=== PATIENT | male | born 1935 | race African-American/Black ===

== ENCOUNTER 2016-04-03 11:15 | Emergency (ER) | payer BC, MEDICARE ==
[~2016-04-03] VITALS: Ht 175.3 cm; Wt 68.0 kg
--- NOTE | 2016-04-03 13:02 | PHYS DOC ---
Past Medical History Past Medical History: No Pertinent History Additional Past Medical Histor: "eye problems" Past Surgical History: Other Additional Past Surgical Histo: PROSTATE SURGERY Alcohol Use: Occasionally Drug Use: None Adult General Chief Complaint Chief Complaint: OTHER COMPLAINTS [facility] HPI Patient is a 81 year old male presents to emergency department complaining of decreased hearing from his right ear for approximately one week. 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 He denies any injury to his ear. Patient denies any history of neuromuscular disease or neuromuscular disorders. Patient denies any drainage from his ear. Review of Systems Review of Systems Constitutional: Denies fever or chills [] Eyes: Denies change in visual acuity, redness, or eye pain [] HENT: Denies nasal congestion or sore throat [] Respiratory: Denies cough or shortness of breath [] Cardiovascular: No additional information not addressed in HPI [] GI: Denies abdominal pain, nausea, vomiting, bloody stools or diarrhea [] : Denies dysuria or hematuria [] Musculoskeletal: Denies back pain or joint pain [] Integument: Denies rash or skin lesions [] Neurologic: Denies headache, focal weakness or sensory changes [] Endocrine: Denies polyuria or polydipsia [] Allergies Allergies Allergies Coded Allergies Type Severity Reaction Last Updated Verified No Known Drug Allergies 09/25/13 No Physical Exam Physical Exam Constitutional: Well developed, well nourished, no acute distress, non-toxic appearance. [] HENT: Normocephalic, atraumatic, bilateral external ears normal, oropharynx moist, no oral exudates, nose normal. Large cerumen impaction in the right ear canal. Eyes: PERRLA, EOMI, conjunctiva normal, no discharge. [] Neck: Normal range of motion, no tenderness, supple, no stridor. [] Cardiovascular:Heart rate regular rhythm, no murmur [] Lungs & Thorax: Bilateral breath sounds clear to auscultation [] Abdomen: Bowel sounds normal, soft, no tenderness, no masses, no pulsatile masses. [] Skin: Warm, dry, no erythema, no rash. [] Back: No tenderness, no CVA tenderness. [] Extremities: No tenderness, no cyanosis, no clubbing, ROM intact, no edema. [] Neurologic: Alert and oriented X 3, normal motor function, normal sensory function, no focal deficits noted. [] Psychologic: Affect normal, judgement normal, mood normal. [] Current Patient Data Vital Signs Vital Signs Date Time Temp Pulse Resp B/P Pulse Ox O2 Delivery O2 Flow Rate FiO2 04/03/16 13:08 76 18 155/68 98 Room Air 04/03/16 11:35 97.8 97.8 EKG EKG [] Radiology/Procedures Radiology/Procedures Procedure note: Patient's right ear canal was filled with peroxide allowed to sit for 10 minutes. His ear canal is then flushed with [id number] hygiene peroxide and water. A large cerumen impaction was removed. Reexamination of patient's ear after cerumen was removed shows an irritated ear canal. Tympanic membrane is fully visualized and is normal in appearance. Course & Med Decision Making Course & Med Decision Making Pertinent Labs and Imaging studies reviewed. (See chart for details) [] Dragon Disclaimer Dragon Disclaimer This electronic medical record was generated, in whole or in part, using a voice recognition dictation system. Departure Departure Impression: Primary Impression: Cerumen impaction Disposition: 01 HOME, SELF-CARE Condition: IMPROVED Referrals: NO PCP (PCP) Patient Instructions: Cerumen Impaction Additional Instructions: 1. The ear wax was removed from your right ear canal. Your eardrum, however, is normal in appearance. 2. Use the drops for you ear canal as prescribed. There was some irritation the ear canal with removal of the ear wax. 3. Review the discharge instructions provided for self care and reasons to return to the emergency department. 4. Use the pamphlet provided for assistance in finding a primary care doctor to address your medical concerns. ALYSA MCKEON Apr 03, 2016 13:02
[2016-04-03 13:08] VITALS: BP 155/68
== END 2016-04-03 13:11 | disposition home or self-care (01) ==
LOC: ER 11:15
DX: H61.21 Impacted cerumen, right ear (principal)
CPT/HCPCS: 69209; 99282

== ENCOUNTER 2018-11-24 10:15 | Inpatient (IN) | payer BC, MEDICARE ==
[~2018-11-24] VITALS: Ht 175.3 cm; Wt 54.4 kg
[2018-11-24] MEDS ORDERED: IV NORMAL SALINE 1000ML BAG 1,000 ML IV SCH (10:38)
--- NOTE | 2018-11-24 10:47 | PHYS DOC ---
Past Medical History Past Medical History: Cancer (prostate) Additional Past Medical Histor: "eye problems" Past Surgical History: Other Additional Past Surgical Histo: PROSTATE SURGERY Smoking: Cigarettes (The patient is a nonsmoker.) Alcohol Use: Occasionally Drug Use: None Adult General Chief Complaint Chief Complaint: ALTERED MENTAL STATUS HPI HPI Patient is an 83-year-old male who presents to the emergency department for evaluation. His family states that he is becoming increasingly confused, and weak, over the past month. Until about a month or 2 ago, he had been working and driving. He denies any pain. He has had a poor appetite, and lost significant amounts of weight. He has not seen a doctor in about 20 years, according to his family. There are no alleviating or exacerbating factors to his symptoms. He has not had a cough. He has never been a smoker. He denies any chest pain or shortness of breath, abdominal pain, or black or bloody stools. Review of Systems Review of Systems Constitutional: Denies fever or chills. Reports weight loss. [] Eyes: Denies change in visual acuity, redness, or eye pain [] HENT: Denies nasal congestion or sore throat [] Respiratory: Denies cough or shortness of breath [] Cardiovascular: The patient denies any shortness of breath, chest pain, palpitations, or orthopnea [] GI: Denies abdominal pain, nausea, vomiting, bloody stools or diarrhea [] : Denies dysuria or hematuria [] Musculoskeletal: Denies back pain or joint pain [] Integument: Denies rash or skin lesions [] Neurologic: Denies headache, focal weakness or sensory changes [] Endocrine: Denies polyuria or polydipsia [] All other systems were reviewed and found to be within normal limits, except as documented in this note. Current Medications Current Medications Current Medications Medications (Trade) Dose Ordered Sig/Tommy Start Time Stop Time Status Last Admin Dose Admin Sodium Chloride 1,000 ml @ 100 mls/hr Q10H 11/24/18 10:38 11/24/18 20:37 11/24/18 11:21 100 MLS/HR Allergies Allergies Allergies Coded Allergies Type Severity Reaction Last Updated Verified No Known Drug Allergies 09/25/13 No Physical Exam Physical Exam PHYSICAL EXAM: CONSTITUTIONAL: Thin, cachectic appearing HEAD: normocephalic, atraumatic EENT: PERRL, EOMI. Conjunctivae normal color, sclerae non-icteric; moist mucous membranes. NECK: Supple, non-tender; no meningismus. LUNGS: Lungs CTA, breathing even and unlabored. Normal air movement. HEART: Regular rate and rhythm, no murmur CHEST: No deformity; non-tender ABDOMEN: The abdomen is soft, and non-tender, no masses or bruits. EXTREM: Normal ROM; no deformity, no calf tenderness. Normal pulses palpable in all extremities. There is no pedal edema. SKIN: No rash; no diaphoresis NEURO: Alert; normal speech, mildly impaired cognition with occasional confabul ation; CN's grossly intact; strength grossly intact without focal deficit. BACK: No CVA TTP. Current Patient Data Vital Signs Vital Signs Date Time Temp Pulse Resp B/P (MAP) Pulse Ox O2 Delivery O2 Flow Rate FiO2 11/24/18 10:32 98.2 85 18 190/86 (120) 100 Room Air 98.2 Lab Values Laboratory Tests Test 11/24/18 10:45 White Blood Count 4.4 x10^3/uL (4.0-11.0) Red Blood Count 2.34 x10^6/uL (4.30-5.70) L Hemoglobin 8.0 g/dL (13.0-17.5) L Hematocrit 24.0 % (39.0-53.0) L Mean Corpuscular Volume 102 fL (79-100) H Mean Corpuscular Hemoglobin 34 pg (25-35) Mean Corpuscular Hemoglobin Concent 34 g/dL (31-37) Red Cell Distribution Width 14.9 % (11.5-14.5) H Platelet Count 385 x10^3/uL (140-400) Neutrophils (%) (Auto) 60 % (31-73) Lymphocytes (%) (Auto) 28 % (24-48) Monocytes (%) (Auto) 12 % (0-9) H Eosinophils (%) (Auto) 0 % (0-3) Basophils (%) (Auto) 0 % (0-3) Neutrophils # (Auto) 2.6 x10^3/uL (1.8-7.7) Lymphocytes # (Auto) 1.2 x10^3/uL (1.0-4.8) Monocytes # (Auto) 0.5 x10^3/uL (0.0-1.1) Eosinophils # (Auto) 0.0 x10^3/uL (0.0-0.7) Basophils # (Auto) 0.0 x10^3/uL (0.0-0.2) Prothrombin Time 14.5 SEC (11.7-14.0) H Prothrombin Time INR 1.2 (0.8-1.1) H Sodium Level 143 mmol/L (136-145) Potassium Level 3.7 mmol/L (3.5-5.1) Chloride Level 106 mmol/L (98-107) Carbon Dioxide Level 31 mmol/L (21-32) Anion Gap 6 (6-14) Blood Urea Nitrogen 25 mg/dL (8-26) Creatinine 1.2 mg/dL (0.7-1.3) Estimated GFR (Cockcroft-Gault) 69.8 BUN/Creatinine Ratio 21 (6-20) H Glucose Level 91 mg/dL (70-99) Calcium Level 13.0 mg/dL (8.5-10.1) *H Phosphorus Level 3.3 mg/dL (2.6-4.7) Magnesium Level 1.9 mg/dL (1.8-2.4) Total Bilirubin 0.3 mg/dL (0.2-1.0) Aspartate Amino Transferase (AST) 18 U/L (15-37) Alanine Aminotransferase (ALT) 7 U/L (16-63) L Alkaline Phosphatase 76 U/L (46-116) Troponin I Quantitative < 0.017 ng/mL (0.000-0.055) ZG-Fhr-L-Type Natriuretic Peptide 728 pg/mL (0-449) H Total Protein 10.0 g/dL (6.4-8.2) H Albumin 1.8 g/dL (3.4-5.0) L Albumin/Globulin Ratio 0.2 (1.0-1.7) L Lipase 78 U/L (73-393) Thyroid Stimulating Hormone (TSH) 4.928 uIU/mL (0.358-3.74) H Free Thyroxine 0.68 ng/dL (0.76-1.46) L Laboratory Tests 11/24/18 10:45 Laboratory Tests 11/24/18 10:45 EKG EKG []normal sinus rhythm at a rate of 71 bpm, normal axis, normal intervals, nonspecific ST/T changes. Radiology/Procedures Radiology/Procedures [PROCEDURE: PORTABLE CHEST 1V PORTABLE CHEST 1V History: Weakness, weight loss Comparison: None available Findings: Single view of the chest is submitted. Heart size is within normal limits. There is no dependent pleural fluid or pneumothorax. There is somewhat hazy opacity of the right lung base and right upper lobe. Impression: 1. There is somewhat hazy opacity of the right lung base and right upper lobe possibly due to infiltrate if there are clinical symptoms of infection, short-term follow-up after treatment advised. If there are not symptoms of infection, CT evaluation may be indicated.] PROCEDURE: CT HEAD WO CONTRAST CT HEAD WO CONTRAST History: Altered mental status Comparison: None. Technique: Noncontrast CT imaging was performed of the head. Exposure: One or more of the following individualized dose reduction techniques were utilized for this examination: 1. Automated exposure control 2. Adjustment of the mA and/or kV according to patient size 3. Use of iterative reconstruction technique. Findings: No intracranial hemorrhage. No mass effect. No hydrocephalus. Mild brain parenchymal volume loss. Imaged orbits are unremarkable. Imaged paranasal sinuses and mastoid air cells are clear. Lytic lesion involving the left mandibular condyle with cortical thinning. Impression: 1. No acute intracranial abnormality. 2. Lytic lesion involving the left mandibular condyle with cortical thinning partially imaged, may relate to degenerative changes although underlying mass is possible. Recommend correlation for symptoms this location. Comparison with prior imaging studies would be of benefit. MRI can better evaluate. Course & Med Decision Making Course & Med Decision Making Pertinent Labs and Imaging studies reviewed. (See chart for details) []11:55 AM: The patient's condition remains stable. I discussed the case in detail with the hospitalist, who will admit the patient for further evaluation. I discussed the uncertain etiology of the patient's symptoms with his family. Given his hypercalcemia, occult recurrence of his prostate cancer is certainly possible. I do not clinically believe that he has pneumonia, and his x-ray findings will be managed expectantly at this time. He will be given IV hydration initially for treatment of his hypercalcemia. Dragon Disclaimer Dragon Disclaimer This electronic medical record was generated, in whole or in part, using a voice recognition dictation system. Departure Departure Impression: Primary Impression: Weakness Additional Impressions: Altered mental status Hypercalcemia Anemia Disposition: 09 ADMITTED INPATIENT Admitting Physician: KALANI Condition: GUARDED Referrals: NO PCP (PCP) Problem Qualifiers LOREE SALDANA MD Nov 24, 2018 10:47
[2018-11-24 11:00] LABS: BASO % 0 % (0-3); EOS % 0 % (0-3); LYMPH # 1.2 x10^3/uL (1.0-4.8); LYMPH % 28 % (24-48); MEAN CORPUSCULAR HEMOGLOBIN 34 pg (25-35); MEAN CORPUSCULAR HGB CONC 34 g/dL (31-37); MEAN CORPUSCULAR VOLUME 102 fL (79-100); MONO # 0.5 x10^3/uL (0.0-1.1); MONO % 12 % (0-9); NEUT # 2.6 x10^3/uL (1.8-7.7); NEUT % 60 % (31-73); PLATELET COUNT 385 x10^3/uL (140-400); RED BLOOD COUNT 2.34 x10^6/uL (4.30-5.70); RED CELL DISTRIBUTION WIDTH 14.9 % (11.5-14.5); WHITE BLOOD COUNT 4.4 x10^3/uL (4.0-11.0)
--- NOTE | 2018-11-24 11:07 | EKG ---
[facility] [address] [place] [address] Test Date: 2018-11-24 Test Time: 10:37:16 Pat Name: JORGITO JOHNSON Department: Room: Gender: M Client Evaluator: : 1935 Requested By: LOREE SALDANA Order Number: [id number] Reading MD: Measurements Intervals [place] Rate: 71 P: 90 ME: 210 QRS: 1 QRSD: 94 T: 70 QT: 348 QTc: 382 Interpretive Statements SINUS RHYTHM T ABNORMALITY IN HIGH LATERAL LEADS ABNORMAL ECG RI6.01 No previous ECG available for comparison
[2018-11-24 11:08] LABS: PROTHROMBIN TIME PATIENT 14.5 SEC (11.7-14.0)
[2018-11-24 11:24] LABS: ALBUMIN 1.8 g/dL (3.4-5.0); ALBUMIN/GLOBULIN RATIO 0.2 (1.0-1.7); CREATININE 1.2 mg/dL (0.7-1.3); GFR 69.8; MAGNESIUM 1.9 mg/dL (1.8-2.4); PHOSPHORUS 3.3 mg/dL (2.6-4.7); POTASSIUM 3.7 mmol/L (3.5-5.1); TOTAL BILIRUBIN 0.3 mg/dL (0.2-1.0)
[2018-11-24 11:32] LABS: FREE T4 0.68 ng/dL (0.76-1.46); THYROID STIM HORMONE (TSH) 4.928 uIU/mL (0.358-3.74)
--- NOTE | 2018-11-24 11:43 | RAD ---
CT HEAD WO CONTRAST History: Altered mental status Comparison: None. Technique: Noncontrast CT imaging was performed of the head. Exposure: One or more of the following individualized dose reduction techniques were utilized for this examination: 1. Automated exposure control 2. Adjustment of the mA and/or kV according to patient size 3. Use of iterative reconstruction technique. Findings: No intracranial hemorrhage. No mass effect. No hydrocephalus. Mild brain parenchymal volume loss. Imaged orbits are unremarkable. Imaged paranasal sinuses and mastoid air cells are clear. Lytic lesion involving the left mandibular condyle with cortical thinning. Impression: 1. No acute intracranial abnormality. 2. Lytic lesion involving the left mandibular condyle with cortical thinning partially imaged, may relate to degenerative changes although underlying mass is possible. Recommend correlation for symptoms this location. Comparison with prior imaging studies would be of benefit. MRI can better evaluate. Electronically signed by: Marcelino Suárez DO (11/24/2018 11:40 AM) [id number]
--- NOTE | 2018-11-24 11:47 | RAD ---
PORTABLE CHEST 1V History: Weakness, weight loss Comparison: None available Findings: Single view of the chest is submitted. Heart size is within normal limits. There is no dependent pleural fluid or pneumothorax. There is somewhat hazy opacity of the right lung base and right upper lobe. Impression: 1. There is somewhat hazy opacity of the right lung base and right upper lobe possibly due to infiltrate if there are clinical symptoms of infection, short-term follow-up after treatment advised. If there are not symptoms of infection, CT evaluation may be indicated. Electronically signed by: Tong Vanegas MD (11/24/2018 11:44 AM) [id number]
[2018-11-24 12:05] LABS: BILIRUBIN,URINE NEGATIVE (NEG); CLARITY,URINE CLOUDY; COLOR,URINE YELLOW; NITRITE,URINE NEGATIVE (NEG); PH,URINE 6.5; PROTEIN,URINE 30 mg/dL (NEG-TRACE)
[2018-11-24 12:11] LABS: AMORPHOUS SEDIMENT,UR PRESENT /HPF; BACTERIA,URINE FEW /HPF (0-FEW); HYALINE CASTS, URINE OCCASIONAL /HPF; WBC,URINE OCC /HPF (0-4)
[2018-11-24 13:00] VITALS: BP 198/79
[2018-11-24] MEDS: AMINO AC 3%/ELECTROLYTE/GLYCER 1,000 ML IV SCH (14:13)
--- NOTE | 2018-11-24 14:45 | PDOC2 ---
NEUROLOGY CONSULT Date of Admission Date of Admission DATE: 11/24/18 TIME: 14:42 Reason for Consult Reason for Consult: Altered mental status Referring Physician Referring Physician: Dr. 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 He has not seen a doctor in 20 years. He lives alone, from his . He does drink a large amount of alcohol. However, family is not sure how much. He has never had seizure, stroke, head injury, delirium tremens. He says that he has blurred vision and double vision. He feels weak all over. He has a history of prostate cancer status-post prostatectomy 20 years ago. Past Medical History Renal/: Prostate Ca. 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 Full 14-point review of systems is negative. Physical Exam Physical Examination General: Well-developed, well-nourished black mael in no acute distress HEENT: Normocephalic and�atraumatic. Temporal arteries�pulsatile and nontender.�Fundoscopic exam unremarkable Neck: Supple without bruit, no meningismus� Musculoskeletal: Stability:�see neurologic. Gait exam:�see neurologic. Tone:�see neurologic.�Strength:�see neurologic.� Neurological: Mental Status:�orientation, memory, attention span/concentration, language, fund of knowledge: knows name, not location or date, has trouble with naming and complex commands, complains of vision loss. Cranial Nerves:�Pupils equal and reactive to light, extraocular movements are�intact, visual haddad are full to confrontation. Facial sensation is normal. There is no facial asymmetry. Vestibulo-ocular reflex is intact. Palate elevates and tongue protrudes in midline. All other cranial related problems are negative except as mentioned before.�Reflexes:�2+ and symmetric with flexor plantar responses. Bilateral grasp reflexes. Motor:�4/5 strength with normal tone and bulk. Coordination:�Finger-nose finger and brsk-ys-gtcb testing are normal. Rapid alternating movements and fine finger movements are intact. Gait: not tested. Sensory:�Normal pinprick, vibration, light touch, proprioception.� Vitals VITALS Vital Signs Date Time Temp Pulse Resp B/P (MAP) Pulse Ox O2 Delivery O2 Flow Rate FiO2 11/24/18 13:18 Room Air 11/24/18 13:00 97.5 66 12 198/79 (118) 96 97.5 Labs Labs Laboratory Tests Test 11/24/18 10:45 11/24/18 11:55 White Blood Count 4.4 x10^3/uL (4.0-11.0) Red Blood Count 2.34 x10^6/uL (4.30-5.70) Hemoglobin 8.0 g/dL (13.0-17.5) Hematocrit 24.0 % (39.0-53.0) Mean Corpuscular Volume 102 fL (79-100) Mean Corpuscular Hemoglobin 34 pg (25-35) Mean Corpuscular Hemoglobin Concent 34 g/dL (31-37) Red Cell Distribution Width 14.9 % (11.5-14.5) Platelet Count 385 x10^3/uL (140-400) Neutrophils (%) (Auto) 60 % (31-73) Lymphocytes (%) (Auto) 28 % (24-48) Monocytes (%) (Auto) 12 % (0-9) Eosinophils (%) (Auto) 0 % (0-3) Basophils (%) (Auto) 0 % (0-3) Neutrophils # (Auto) 2.6 x10^3/uL (1.8-7.7) Lymphocytes # (Auto) 1.2 x10^3/uL (1.0-4.8) Monocytes # (Auto) 0.5 x10^3/uL (0.0-1.1) Eosinophils # (Auto) 0.0 x10^3/uL (0.0-0.7) Basophils # (Auto) 0.0 x10^3/uL (0.0-0.2) Prothrombin Time 14.5 SEC (11.7-14.0) Prothromb Time International Ratio 1.2 (0.8-1.1) Sodium Level 143 mmol/L (136-145) Potassium Level 3.7 mmol/L (3.5-5.1) Chloride Level 106 mmol/L (98-107) Carbon Dioxide Level 31 mmol/L (21-32) Anion Gap 6 (6-14) Blood Urea Nitrogen 25 mg/dL (8-26) Creatinine 1.2 mg/dL (0.7-1.3) Estimated GFR (Cockcroft-Gault) 69.8 BUN/Creatinine Ratio 21 (6-20) Glucose Level 91 mg/dL (70-99) Calcium Level 13.0 mg/dL (8.5-10.1) Phosphorus Level 3.3 mg/dL (2.6-4.7) Magnesium Level 1.9 mg/dL (1.8-2.4) Total Bilirubin 0.3 mg/dL (0.2-1.0) Aspartate Amino Transf (AST/SGOT) 18 U/L (15-37) Alanine Aminotransferase (ALT/SGPT) 7 U/L (16-63) Alkaline Phosphatase 76 U/L (46-116) Troponin I Quantitative < 0.017 ng/mL (0.000-0.055) UA-Dud-J-Type Natriuretic Peptide 728 pg/mL (0-449) Total Protein 10.0 g/dL (6.4-8.2) Albumin 1.8 g/dL (3.4-5.0) Albumin/Globulin Ratio 0.2 (1.0-1.7) Lipase 78 U/L (73-393) Thyroid Stimulating Hormone (TSH) 4.928 uIU/mL (0.358-3.74) Free Thyroxine 0.68 ng/dL (0.76-1.46) Urine Collection Type U cath Urine Color Yellow Urine Clarity Cloudy Urine pH 6.5 Urine Specific [place] 1.015 Urine Protein 30 mg/dL (NEG-TRACE) Urine Glucose (UA) Negative mg/dL (NEG) Urine Ketones (Stick) Negative mg/dL (NEG) Urine Blood Small (NEG) Urine Nitrite Negative (NEG) Urine Bilirubin Negative (NEG) Urine Urobilinogen Dipstick 1.0 mg/dL (0.2 mg/dL) Urine Leukocyte Esterase Negative (NEG) Urine RBC 3-5 /HPF (0-2) Urine WBC Occ /HPF (0-4) Urine Amorphous Sediment Present /HPF Urine Bacteria Few /HPF (0-FEW) Urine Hyaline Casts Occasional /HPF Laboratory Tests Test 11/24/18 10:45 11/24/18 11:55 White Blood Count 4.4 x10^3/uL (4.0-11.0) Red Blood Count 2.34 x10^6/uL (4.30-5.70) Hemoglobin 8.0 g/dL (13.0-17.5) Hematocrit 24.0 % (39.0-53.0) Mean Corpuscular Volume 102 fL (79-100) Mean Corpuscular Hemoglobin 34 pg (25-35) Mean Corpuscular Hemoglobin Concent 34 g/dL (31-37) Red Cell Distribution Width 14.9 % (11.5-14.5) Platelet Count 385 x10^3/uL (140-400) Neutrophils (%) (Auto) 60 % (31-73) Lymphocytes (%) (Auto) 28 % (24-48) Monocytes (%) (Auto) 12 % (0-9) Eosinophils (%) (Auto) 0 % (0-3) Basophils (%) (Auto) 0 % (0-3) Neutrophils # (Auto) 2.6 x10^3/uL (1.8-7.7) Lymphocytes # (Auto) 1.2 x10^3/uL (1.0-4.8) Monocytes # (Auto) 0.5 x10^3/uL (0.0-1.1) Eosinophils # (Auto) 0.0 x10^3/uL (0.0-0.7) Basophils # (Auto) 0.0 x10^3/uL (0.0-0.2) Prothrombin Time 14.5 SEC (11.7-14.0) Prothromb Time International Ratio 1.2 (0.8-1.1) Sodium Level 143 mmol/L (136-145) Potassium Level 3.7 mmol/L (3.5-5.1) Chloride Level 106 mmol/L (98-107) Carbon Dioxide Level 31 mmol/L (21-32) Anion Gap 6 (6-14) Blood Urea Nitrogen 25 mg/dL (8-26) Creatinine 1.2 mg/dL (0.7-1.3) Estimated GFR (Cockcroft-Gault) 69.8 BUN/Creatinine Ratio 21 (6-20) Glucose Level 91 mg/dL (70-99) Calcium Level 13.0 mg/dL (8.5-10.1) Phosphorus Level 3.3 mg/dL (2.6-4.7) Magnesium Level 1.9 mg/dL (1.8-2.4) Total Bilirubin 0.3 mg/dL (0.2-1.0) Aspartate Amino Transf (AST/SGOT) 18 U/L (15-37) Alanine Aminotransferase (ALT/SGPT) 7 U/L (16-63) Alkaline Phosphatase 76 U/L (46-116) Troponin I Quantitative < 0.017 ng/mL (0.000-0.055) BP-Lep-L-Type Natriuretic Peptide 728 pg/mL (0-449) Total Protein 10.0 g/dL (6.4-8.2) Albumin 1.8 g/dL (3.4-5.0) Albumin/Globulin Ratio 0.2 (1.0-1.7) Lipase 78 U/L (73-393) Thyroid Stimulating Hormone (TSH) 4.928 uIU/mL (0.358-3.74) Free Thyroxine 0.68 ng/dL (0.76-1.46) Urine Collection Type U cath Urine Color Yellow Urine Clarity Cloudy Urine pH 6.5 Urine Specific [place] 1.015 Urine Protein 30 mg/dL (NEG-TRACE) Urine Glucose (UA) Negative mg/dL (NEG) Urine Ketones (Stick) Negative mg/dL (NEG) Urine Blood Small (NEG) Urine Nitrite Negative (NEG) Urine Bilirubin Negative (NEG) Urine Urobilinogen Dipstick 1.0 mg/dL (0.2 mg/dL) Urine Leukocyte Esterase Negative (NEG) Urine RBC 3-5 /HPF (0-2) Urine WBC Occ /HPF (0-4) Urine Amorphous Sediment Present /HPF Urine Bacteria Few /HPF (0-FEW) Urine Hyaline Casts Occasional /HPF Images Images CT HEAD WO CONTRAST No intracranial hemorrhage. No mass effect. No hydrocephalus. Mild brain parenchymal volume loss. Imaged orbits are unremarkable. Imaged paranasal sinuses and mastoid air cells are clear. Lytic lesion involving the left mandibular condyle with cortical thinning. Impression: 1. No acute intracranial abnormality. 2. Lytic lesion involving the left mandibular condyle with cortical thinning partially imaged, may relate to degenerative changes although underlying mass is possible. Recommend correlation for symptoms this location. Comparison with prior imaging studies would be of benefit. MRI can better evaluate. 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 Also note a nemia, hypercalcemia, abnormal thyroid studies Lytic lesion involving the left mandibular condyle Recommendations: MRI of the brain Additional laboratory studies Rehabilitation modalities Thiamine Treat medical issues Fully discussed with patient and his family. Thank you for letting me help with the patient's care. LUCIANA CANTRELL MD Nov 24, 2018 14:45
--- NOTE | 2018-11-24 14:51 | HP ---
ADMIT DATE: 11/24/2018 CHIEF COMPLAINT: Mental status change, weakness and weight loss. HISTORY OF PRESENT ILLNESS: The patient is a pleasant 83-year-old male who was diagnosed with prostate cancer 20 years ago and apparently has never followed up. Now, he is losing lots of weight. He is down to 98 pounds. He has mental status change. We did some imaging. He does have a lytic lesion on his left mandible. I suspect he has got metastatic prostate cancer. We are going to admit the patient and consult Oncology and Urology. PAST MEDICAL HISTORY: Noncompliance, prostate cancer, some type of ocular problems, tobacco abuse. ALLERGIES: None. FAMILY HISTORY: Diabetes. SOCIAL HISTORY: Quit smoking, no drinking or drugs. MEDICATIONS: Reviewed, please refer to the MRAD. REVIEW OF SYSTEMS: Unable to obtain. The patient will not talk. PHYSICAL EXAMINATION: VITALS: Within normal limits and are stable. GENERAL: Cachectic. HEENT: Head is normocephalic, atraumatic, pupils were equally round and reactive to light and accommodation. NECK: Supple, no JVD, no thyromegaly was noted. LUNGS: Clear to auscultation in all lung haddad without rhonchi or wheezing. HEART: RRR, S1, S2 present. Peripheral pulses intact, no obvious murmurs were noted. ABDOMEN: Soft, nontender. Positive bowel sounds no organomegaly, normal bowel sounds. EXTREMITIES: Without any cyanosis, clubbing, or edema. Pedal pulses intact, Homans sign is negative. NEUROLOGIC: He will not talk to me. PSYCHIATRIC: Normal affect, normal mood. Stable. SKIN: No ulcerations or rashes, good skin turgor, no jaundice. VASCULAR: Good capillary refill, neurovascular bundle appears to be intact. DIAGNOSTIC STUDIES: Chest x-ray, there is a right base haziness, could be an infiltrate. CT of the head a lytic lesion involving the left mandible. LABORATORY DATA: Hemoglobin is 8. Electrolytes are normal. Calcium is high at 13. TSH is slightly high at 4.9. ASSESSMENT AND PLAN: Mental status change, weight loss, lytic lesion, hypercalcemia and anemia in an elderly male who has a history of prostate cancer with no followup. Suspect he has metastatic prostate cancer, but I am not sure at this point. We are going to check a PSA and bone scan. Consult Oncology, consult Urology, consult Neurology and consult Pulmonary Medicine because of the abnormal chest x-ray. IV procalamine, daily labs, PT/OT, PSA level. PROGNOSIS: Guarded. DEX ANDERSON DO DR: DANDY/laure JOB#: [id number] / [id number]
[2018-11-24] MEDS: MULTIVITAMIN with MINERAL TABLET. PO SCH ×2 (15:00→16:19)
--- NOTE | 2018-11-24 15:12 | CONS ---
DATE OF CONSULTATION: PULMONARY CONSULTATION ATTENDING PHYSICIAN: Dr. Cruz. REASON FOR CONSULTATION: Abnormal chest x-ray. HISTORY OF PRESENT ILLNESS: The patient is an 83-year-old male who was brought into the hospital for evaluation of increasing confusion, weakness, not eating well and losing weight. His family states that he was doing reasonably well, working and driving about 2 months ago. The patient denies any cough, no fever, no chills. No chest pains. Chest x-ray was performed and was reviewed by me. There is some mild hazy opacity at right lung base and right upper lobe, which may be related to atelectasis. The patient is here for further evaluation and I have been asked to see him for that reason. PAST MEDICAL HISTORY: Significant for history of prostate cancer. No significant tobacco history. PAST SURGICAL HISTORY: Prostate surgery. ALLERGIES: None. MEDICATIONS: Reviewed as listed in the MRAD. REVIEW OF SYSTEMS: Ten-point system obtained. Pertinent positives discussed in my history of present illness, otherwise noncontributory. All systems that were negative were reviewed as well. SOCIAL HISTORY: No significant tobacco history. He drinks beer mostly. PHYSICAL EXAMINATION: VITAL SIGNS: Blood pressure on the high side, pulse ox 96% on room air, afebrile. NECK: Supple. LUNGS: Diminished at the bases. CARDIOVASCULAR: Regular rate. ABDOMEN: Soft, nontender. EXTREMITIES: With no pitting edema. LABORATORY DATA: Reviewed. Calcium is 13.0. Albumin 1.8. TSH is 4.9. INR 1.2. White cell count 4.4. IMPRESSION: 1. Unexplained weight loss and loss of appetite along with declining mental function. Etiology not so obvious. No significant tobacco history. He does have hypercalcemia and malignancy should be ruled out. I would recommend doing CT chest, abdomen and pelvis. 2. No significant tobacco history. 3. Hypercalcemia to be managed per PCP. 4. Severe protein-calorie malnutrition. RECOMMENDATIONS: 1. Follow Neurology recommendation. I understand an MRI has been ordered. 2. We will do a noncontrast CT chest to rule out any infectious etiology, rule out any occult malignancy. At the same time, we do a CT abdomen and pelvis as well. 3. Treatment and workup of hypercalcemia per PCP. 4. Discussed with the patient's family. We will follow along with you. CONNIE WHITMORE MD DR: Alicia JOB#: [id number] / [id number]
[2018-11-24 16:09] VITALS: BP 158/64
[2018-11-24] MEDS: THIAMINE IM 200 MG/2 ML VIAL. IM SCH (16:20)
--- NOTE | 2018-11-24 16:24 | RAD ---
MRI Brain without contrast History: Altered mental status Technique: Multiplanar, multisequential noncontrast MR imaging was performed of the brain. Comparison: CT head the same day Findings: There is some motion degradation. There is no restricted diffusion suggestive of recent infarct. There is no intra-axial mass effect or midline shift. There is mild lateral ventriculomegaly likely due to mild supratentorial atrophy. There is scattered overall mild T2 and FLAIR hyperintense signal abnormality of the supratentorial parenchyma bilaterally greatest of the frontal lobes. There is no significant hemosiderin deposition of the right,. There is preservation of the major arterial flow voids at the skull base. There is patchy minimal ethmoid air cell mucosal thickening. There is relative decreased T1 signal of the more posterior central clivus there is also decreased T1 signal of the visualized cervical marrow and also of the mandibular condyles greater on the left. Impression: 1. There is no evidence of recent infarct or intracranial mass effect. Overall mild T2 and FLAIR hyperintense abnormality of the supratentorial parenchyma bilaterally is nonspecific, more commonly due to chronic microvascular ischemic disease in a patient this age. There is mild supratentorial atrophy. 2. There is abnormal decreased T1 signal of the marrow of the clivus, visualized cervical marrow, and also of the mandibular condyles greater on the left concerning for underlying marrow replacing process/marrow disorder. Electronically signed by: Tong Vanegas MD (11/24/2018 4:21 PM) [id number]
--- NOTE | 2018-11-24 16:35 | RAD ---
PQRS Compliance statement: One or more of the following individualized dose reduction techniques were utilized for this examination: 1. Automated exposure control. 2. Adjustment of the mA and/or kV according to patient size. 3. Use of iterative reconstruction technique. Indication:Explain weight loss. TECHNIQUE: CT chest, abdomen and pelviswithout IV contrast with multiplanar reformats. COMPARISON: None FINDINGS: Limited exam due to lack of IV contrast. Heart is normal in size. Trace bilateral pleural effusions. No mediastinal lymph nodes. Evaluation of hilar lymphadenopathy is limited due to lack of IV contrast. Patchy opacity measuring 1.5 cm seen in the right upper lobe with pleural retraction. Consolidation is seen in the bilateral posterior lung bases. Otherwise, lungs are clear. 4.3 x 2.2 cm lesion is seen centered on the anterior right fifth rib with soft tissue component. Another lytic lesion is seen centered on the posterior eighth rib with rib destruction measuring approximately 3.6 x 1.8 cm. Numerous lucencies seen in the ribs, spine and sternum. Liver is normal in morphology. No radiopaque gallstones. Spleen is unenlarged. No nephrolithiasis. Moderate diffuse atherosclerotic plaque in the abdominal aorta and bilateral iliac arteries. Urinary bladder demonstrates no radiopaque stone. Status post prostatectomy and bilateral pelvic sidewall lymph node dissection. No bowel obstruction. Numerous lucencies are seen in the pelvic bones and lumbar spine. IMPRESSION: Significantly limited exam due to lack of IV contrast. 1. Diffusely lytic osseous lesions. Differential diagnoses includes multiple myeloma or metastasis. 2. Right upper lobe patchy opacity, nonspecific may be or scar. Follow-up recommended in 3-4 months. Electronically signed by: Shan Hunt DO (11/24/2018 4:31 PM) [id number]
[2018-11-24 19:47] VITALS: BP 165/99
[2018-11-24 23:46] VITALS: BP 167/89
[2018-11-25 03:55] VITALS: BP 168/73
[2018-11-25] MEDS: AMINO AC 3%/ELECTROLYTE/GLYCER 1,000 ML IV SCH ×2 (06:29→20:03)
[2018-11-25 07:00] VITALS: BP 168/74
[2018-11-25] MEDS: MULTIVITAMIN with MINERAL TABLET. PO SCH (09:00)
[2018-11-25] MEDS: THIAMINE IM 200 MG/2 ML VIAL. IM SCH (09:06)
--- NOTE | 2018-11-25 09:46 | PDOC2 ---
CONSULT Date of Consult Date of Consult DATE: 11/25/18 TIME: 09:38 Reason for consultation: Hypercalcemia Consult: Hematology oncology, Dr. 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, has a daughter Temitope and a niece Sin who goes by Rose, his still helps make decisions for him, history of significant alcohol Family history: Diabetes Review of systems: mental status changes, wt loss, otherwise unobtainable as he does not answer questions, his family does not note any pain or other concerning symptoms at the moment Physical exam: Vitals reviewed Gen.: thin elderly black man in no acute distress HEENT: mucous membranes moist, head normocephalic atraumatic Neck: Supple, no lymphadenopathy noted Lymph nodes: No palpable lymphadenopathy neck or axilla, exam limited by his positioning in bed Lungs: Breathing comfortably on room air, w/o respiratory distress Abdomen: Soft, nontender, nondistended Extremities: No cyanosis or edema Skin: No obvious rashes or skin breakdown Neuro: Alert somewhat, not oriented Psych: calm mood and tired affect Lab reviewed: Calcium of 13, total protein of 10, albumin of 1.8, ammonia 49 INR 1.2 Creatinine 1.2 Hemoglobin of 8, white count 4.4, platelets 385, MCV of 102 PSA of 0.05 TSH of 4.9 ProBNP of 728 ESR greater than 1:30 Rads reviewed: Brain MRI showed abnormal marrow signal CT head showed left mandible lytic lesion CT chest abdomen and pelvis showed diffuse lytic lesions, 1.5 cm right upper lobe opacity could be scar? Case discussed with: Patient, his family members, including his daughter and niece, records reviewed in [facility] and [facility] as available, including labs and radiology. Please see note for summary details. Assessment and Plan: He is an 83-year-old man with remote history of prostate cancer and suspected new diagnosis of multiple myeloma based on hypercalcemia, hypoproteinemia, lytic lesions, anemia, and altered mental status suspect in large part due to hypercalcemia also with some slightly elevated ammonia Hypercalcemia: We'll give Zometa �1 dose now Suspected multiple myeloma: We'll check SPEP and UPEP with quantitative immunoglobulins and free light chains, deferring bone marrow biopsy at this time, his family suggested decisions to be made by his who is not here, also I anticipate his mental status may improve after a dose of Zometa and improvement of calcium levels Elevated ammonia: Deferred to primary, may want to add lactulose? Anemia: spep/B12 is pending, no need for transfusion at the moment History of prostate cancer: Appears to be remote, PSA is negative for recurrence History of alcohol: On multivitamin and thiamine Disposition: After continued clinical improvement Thank you kindly for this consultation, I will return on Friday but am available for questions in the interim. Past Medical History Renal/: Prostate Ca. Past Surgical History Past Surgical History: Other (prostatectomy) Current Problem List Problem List Problems Medical Problems: (1) Altered mental status Status: Acute (2) Anemia Status: Acute (3) Hypercalcemia Status: Acute (4) Weakness Status: Acute Current Medications Current Medications Current Medications Sodium Chloride 1,000 ml @ 100 mls/hr Q10H IV Last administered on 11/24/18at 11:21; Start 11/24/18 at 10:38; Stop 11/24/18 at 14:02; Status DC Amino Acids/ Glycerin/ Electrolytes 1,000 ml @ 75 mls/hr [id number] IV Last administered on 11/25/18at 06:29; Start 11/24/18 at 14:00 Thiamine HCl 100 mg DAILY IM Last administered on 11/25/18at 09:06; Start 11/24/18 at 15:00; Stop 11/26/18 at 09:01 Multivitamins (Thera M Plus) 1 tab DAILY PO ; Start 11/24/18 at 15:00 Allergies Allergies: Coded Allergies: No Known Drug Allergies (Unverified , 09/25/13) Vitals VITALS Vital Signs Date Time Temp Pulse Resp B/P (MAP) Pulse Ox O2 Delivery O2 Flow Rate FiO2 11/25/18 07:00 97.7 97 18 168/74 (105) 98 Room Air 97.7 Labs Labs Laboratory Tests Test 11/24/18 10:45 11/24/18 11:55 11/25/18 03:40 11/25/18 03:45 White Blood Count 4.4 x10^3/uL (4.0-11.0) Red Blood Count 2.34 x10^6/uL (4.30-5.70) Hemoglobin 8.0 g/dL (13.0-17.5) Hematocrit 24.0 % (39.0-53.0) Mean Corpuscular Volume 102 fL (79-100) Mean Corpuscular Hemoglobin 34 pg (25-35) Mean Corpuscular Hemoglobin Concent 34 g/dL (31-37) Red Cell Distribution Width 14.9 % (11.5-14.5) Platelet Count 385 x10^3/uL (140-400) Neutrophils (%) (Auto) 60 % (31-73) Lymphocytes (%) (Auto) 28 % (24-48) Monocytes (%) (Auto) 12 % (0-9) Eosinophils (%) (Auto) 0 % (0-3) Basophils (%) (Auto) 0 % (0-3) Neutrophils # (Auto) 2.6 x10^3/uL (1.8-7.7) Lymphocytes # (Auto) 1.2 x10^3/uL (1.0-4.8) Monocytes # (Auto) 0.5 x10^3/uL (0.0-1.1) Eosinophils # (Auto) 0.0 x10^3/uL (0.0-0.7) Basophils # (Auto) 0.0 x10^3/uL (0.0-0.2) Prothrombin Time 14.5 SEC (11.7-14.0) Prothromb Time International Ratio 1.2 (0.8-1.1) Sodium Level 143 mmol/L (136-145) Potassium Level 3.7 mmol/L (3.5-5.1) Chloride Level 106 mmol/L (98-107) Carbon Dioxide Level 31 mmol/L (21-32) Anion Gap 6 (6-14) Blood Urea Nitrogen 25 mg/dL (8-26) Creatinine 1.2 mg/dL (0.7-1.3) Estimated GFR (Cockcroft-Gault) 69.8 BUN/Creatinine Ratio 21 (6-20) Glucose Level 91 mg/dL (70-99) Calcium Level 13.0 mg/dL (8.5-10.1) Phosphorus Level 3.3 mg/dL (2.6-4.7) Magnesium Level 1.9 mg/dL (1.8-2.4) Total Bilirubin 0.3 mg/dL (0.2-1.0) Aspartate Amino Transf (AST/SGOT) 18 U/L (15-37) Alanine Aminotransferase (ALT/SGPT) 7 U/L (16-63) Alkaline Phosphatase 76 U/L (46-116) Troponin I Quantitative < 0.017 ng/mL (0.000-0.055) VP-Skd-W-Type Natriuretic Peptide 728 pg/mL (0-449) Total Protein 10.0 g/dL (6.4-8.2) Albumin 1.8 g/dL (3.4-5.0) Albumin/Globulin Ratio 0.2 (1.0-1.7) Lipase 78 U/L (73-393) Prostate Specific Antigen 0.05 ng/mL (0.00-4.00) Thyroid Stimulating Hormone (TSH) 4.928 uIU/mL (0.358-3.74) Free Thyroxine 0.68 ng/dL (0.76-1.46) Urine Collection Type U cath Urine Color Yellow Urine Clarity Cloudy Urine pH 6.5 Urine Specific [place] 1.015 Urine Protein 30 mg/dL (NEG-TRACE) Urine Glucose (UA) Negative mg/dL (NEG) Urine Ketones (Stick) Negative mg/dL (NEG) Urine Blood Small (NEG) Urine Nitrite Negative (NEG) Urine Bilirubin Negative (NEG) Urine Urobilinogen Dipstick 1.0 mg/dL (0.2 mg/dL) Urine Leukocyte Esterase Negative (NEG) Urine RBC 3-5 /HPF (0-2) Urine WBC Occ /HPF (0-4) Urine Amorphous Sediment Present /HPF Urine Bacteria Few /HPF (0-FEW) Urine Hyaline Casts Occasional /HPF Ammonia 49 mcmol/L (11-34) Erythrocyte Sedimentation Rate > 130 (0-15) Laboratory Tests Test 11/24/18 10:45 11/24/18 11:55 11/25/18 03:40 11/25/18 03:45 White Blood Count 4.4 x10^3/uL (4.0-11.0) Red Blood Count 2.34 x10^6/uL (4.30-5.70) Hemoglobin 8.0 g/dL (13.0-17.5) Hematocrit 24.0 % (39.0-53.0) Mean Corpuscular Volume 102 fL (79-100) Mean Corpuscular Hemoglobin 34 pg (25-35) Mean Corpuscular Hemoglobin Concent 34 g/dL (31-37) Red Cell Distribution Width 14.9 % (11.5-14.5) Platelet Count 385 x10^3/uL (140-400) Neutrophils (%) (Auto) 60 % (31-73) Lymphocytes (%) (Auto) 28 % (24-48) Monocytes (%) (Auto) 12 % (0-9) Eosinophils (%) (Auto) 0 % (0-3) Basophils (%) (Auto) 0 % (0-3) Neutrophils # (Auto) 2.6 x10^3/uL (1.8-7.7) Lymphocytes # (Auto) 1.2 x10^3/uL (1.0-4.8) Monocytes # (Auto) 0.5 x10^3/uL (0.0-1.1) Eosinophils # (Auto) 0.0 x10^3/uL (0.0-0.7) Basophils # (Auto) 0.0 x10^3/uL (0.0-0.2) Prothrombin Time 14.5 SEC (11.7-14.0) Prothromb Time International Ratio 1.2 (0.8-1.1) Sodium Level 143 mmol/L (136-145) Potassium Level 3.7 mmol/L (3.5-5.1) Chloride Level 106 mmol/L (98-107) Carbon Dioxide Level 31 mmol/L (21-32) Anion Gap 6 (6-14) Blood Urea Nitrogen 25 mg/dL (8-26) Creatinine 1.2 mg/dL (0.7-1.3) Estimated GFR (Cockcroft-Gault) 69.8 BUN/Creatinine Ratio 21 (6-20) Glucose Level 91 mg/dL (70-99) Calcium Level 13.0 mg/dL (8.5-10.1) Phosphorus Level 3.3 mg/dL (2.6-4.7) Magnesium Level 1.9 mg/dL (1.8-2.4) Total Bilirubin 0.3 mg/dL (0.2-1.0) Aspartate Amino Transf (AST/SGOT) 18 U/L (15-37) Alanine Aminotransferase (ALT/SGPT) 7 U/L (16-63) Alkaline Phosphatase 76 U/L (46-116) Troponin I Quantitative < 0.017 ng/mL (0.000-0.055) AV-Rfl-I-Type Natriuretic Peptide 728 pg/mL (0-449) Total Protein 10.0 g/dL (6.4-8.2) Albumin 1.8 g/dL (3.4-5.0) Albumin/Globulin Ratio 0.2 (1.0-1.7) Lipase 78 U/L (73-393) Prostate Specific Antigen 0.05 ng/mL (0.00-4.00) Thyroid Stimulating Hormone (TSH) 4.928 uIU/mL (0.358-3.74) Free Thyroxine 0.68 ng/dL (0.76-1.46) Urine Collection Type U cath Urine Color Yellow Urine Clarity Cloudy Urine pH 6.5 Urine Specific [place] 1.015 Urine Protein 30 mg/dL (NEG-TRACE) Urine Glucose (UA) Negative mg/dL (NEG) Urine Ketones (Stick) Negative mg/dL (NEG) Urine Blood Small (NEG) Urine Nitrite Negative (NEG) Urine Bilirubin Negative (NEG) Urine Urobilinogen Dipstick 1.0 mg/dL (0.2 mg/dL) Urine Leukocyte Esterase Negative (NEG) Urine RBC 3-5 /HPF (0-2) Urine WBC Occ /HPF (0-4) Urine Amorphous Sediment Present /HPF Urine Bacteria Few /HPF (0-FEW) Urine Hyaline Casts Occasional /HPF Ammonia 49 mcmol/L (11-34) Erythrocyte Sedimentation Rate > 130 (0-15) OMAR JENKINS MD Nov 25, 2018 09:46
[2018-11-25] MEDS ORDERED: ZOLEDRONICACID 4mg/100mlPREMIX 100 ML IV ONE (10:00)
--- NOTE | 2018-11-25 10:08 | PDOC2 ---
JENARO SOTOMAYOR 11/25/18 1008: UROLOGY CONSULT Date of Consult Date of Consult DATE: 11/25/18 TIME: 10:06 Reason for Consult Reason for Consult: hx of prostate cancer Identification/Chief Complaint Chief Complaint hx of prostate cancer Source Source: Caregiver, Chart review History of Present Illness Reason for Visit: 83yo male presented to ER for AMS rapidly worsened over the past month and unintentional weight loss. He has distant history of prostate cancer s/p prostatectomy per previous notes. PSA of 0.05 was obtained at admission. CT imaging revealed diffusely lytic bone lesions suggestive of multiple myeloma or metastasis. Today, patient was sitting on edge of bed, unable to answer any questions. Family member in the room is unaware of medical history. Past Medical History Renal/: Prostate Ca. Past Surgical History Past Surgical History: Other (prostatectomy) Family History Family History Unable to obtain Social History Social History Unable to obtain Current Medications Current Medications Current Medications Amino Acids/ Glycerin/ Electrolytes 1,000 ml @ 75 mls/hr [id number] IV Last administered on 11/25/18at 06:29; Start 11/24/18 at 14:00 Multivitamins (Thera M Plus) 1 tab DAILY PO ; Start 11/24/18 at 15:00 Sodium Chloride 1,000 ml @ 100 mls/hr Q10H IV Last administered on 11/24/18at 11:21; Start 11/24/18 at 10:38; Stop 11/24/18 at 14:02; Status DC Thiamine HCl 100 mg DAILY IM Last administered on 11/25/18at 09:06; Start 11/24/18 at 15:00; Stop 11/26/18 at 09:01 Zoledronic Acid 100 ml @ 400 mls/hr 1X ONCE IV ; Start 11/25/18 at 10:00; Stop 11/25/18 at 10:14 Allergies Allergies: Coded Allergies: No Known Drug Allergies (Unverified , 09/25/13) ROS Review Of Systems: Unable to obtain Physical Exam Physical Exam: General: Pleasant, no acute distress, thin Eyes: conjunctiva anicteric, eyes full range of motion ENT: moist oral mucosa, normal dentition Neck: Trachea midline, no masses Respiratory: unlabored breathing, not using accessory muscles Cardiovascular: no peripheral edema Abdomen: nontender, nondistended, no hepatosplenomegaly, no masses Skin: no rashes or skin lesions on visualized skin Psych: confused, unable to answer questions Vitals VITALS Vital Signs Date Time Temp Pulse Resp B/P (MAP) Pulse Ox O2 Delivery O2 Flow Rate FiO2 11/25/18 07:00 97.7 97 18 168/74 (105) 98 Room Air 97.7 Labs Labs Laboratory Tests Test 11/24/18 10:45 11/24/18 11:55 11/25/18 03:40 11/25/18 03:45 White Blood Count 4.4 x10^3/uL (4.0-11.0) Red Blood Count 2.34 x10^6/uL (4.30-5.70) Hemoglobin 8.0 g/dL (13.0-17.5) Hematocrit 24.0 % (39.0-53.0) Mean Corpuscular Volume 102 fL (79-100) Mean Corpuscular Hemoglobin 34 pg (25-35) Mean Corpuscular Hemoglobin Concent 34 g/dL (31-37) Red Cell Distribution Width 14.9 % (11.5-14.5) Platelet Count 385 x10^3/uL (140-400) Neutrophils (%) (Auto) 60 % (31-73) Lymphocytes (%) (Auto) 28 % (24-48) Monocytes (%) (Auto) 12 % (0-9) Eosinophils (%) (Auto) 0 % (0-3) Basophils (%) (Auto) 0 % (0-3) Neutrophils # (Auto) 2.6 x10^3/uL (1.8-7.7) Lymphocytes # (Auto) 1.2 x10^3/uL (1.0-4.8) Monocytes # (Auto) 0.5 x10^3/uL (0.0-1.1) Eosinophils # (Auto) 0.0 x10^3/uL (0.0-0.7) Basophils # (Auto) 0.0 x10^3/uL (0.0-0.2) Prothrombin Time 14.5 SEC (11.7-14.0) Prothromb Time International Ratio 1.2 (0.8-1.1) Sodium Level 143 mmol/L (136-145) Potassium Level 3.7 mmol/L (3.5-5.1) Chloride Level 106 mmol/L (98-107) Carbon Dioxide Level 31 mmol/L (21-32) Anion Gap 6 (6-14) Blood Urea Nitrogen 25 mg/dL (8-26) Creatinine 1.2 mg/dL (0.7-1.3) Estimated GFR (Cockcroft-Gault) 69.8 BUN/Creatinine Ratio 21 (6-20) Glucose Level 91 mg/dL (70-99) Calcium Level 13.0 mg/dL (8.5-10.1) Phosphorus Level 3.3 mg/dL (2.6-4.7) Magnesium Level 1.9 mg/dL (1.8-2.4) Total Bilirubin 0.3 mg/dL (0.2-1.0) Aspartate Amino Transf (AST/SGOT) 18 U/L (15-37) Alanine Aminotransferase (ALT/SGPT) 7 U/L (16-63) Alkaline Phosphatase 76 U/L (46-116) Troponin I Quantitative < 0.017 ng/mL (0.000-0.055) XF-Fhl-L-Type Natriuretic Peptide 728 pg/mL (0-449) Total Protein 10.0 g/dL (6.4-8.2) Albumin 1.8 g/dL (3.4-5.0) Albumin/Globulin Ratio 0.2 (1.0-1.7) Lipase 78 U/L (73-393) Prostate Specific Antigen 0.05 ng/mL (0.00-4.00) Thyroid Stimulating Hormone (TSH) 4.928 uIU/mL (0.358-3.74) Free Thyroxine 0.68 ng/dL (0.76-1.46) Urine Collection Type U cath Urine Color Yellow Urine Clarity Cloudy Urine pH 6.5 Urine Specific [place] 1.015 Urine Protein 30 mg/dL (NEG-TRACE) Urine Glucose (UA) Negative mg/dL (NEG) Urine Ketones (Stick) Negative mg/dL (NEG) Urine Blood Small (NEG) Urine Nitrite Negative (NEG) Urine Bilirubin Negative (NEG) Urine Urobilinogen Dipstick 1.0 mg/dL (0.2 mg/dL) Urine Leukocyte Esterase Negative (NEG) Urine RBC 3-5 /HPF (0-2) Urine WBC Occ /HPF (0-4) Urine Amorphous Sediment Present /HPF Urine Bacteria Few /HPF (0-FEW) Urine Hyaline Casts Occasional /HPF Ammonia 49 mcmol/L (11-34) Erythrocyte Sedimentation Rate > 130 (0-15) Laboratory Tests Test 11/24/18 10:45 11/24/18 11:55 11/25/18 03:40 11/25/18 03:45 White Blood Count 4.4 x10^3/uL (4.0-11.0) Red Blood Count 2.34 x10^6/uL (4.30-5.70) Hemoglobin 8.0 g/dL (13.0-17.5) Hematocrit 24.0 % (39.0-53.0) Mean Corpuscular Volume 102 fL (79-100) Mean Corpuscular Hemoglobin 34 pg (25-35) Mean Corpuscular Hemoglobin Concent 34 g/dL (31-37) Red Cell Distribution Width 14.9 % (11.5-14.5) Platelet Count 385 x10^3/uL (140-400) Neutrophils (%) (Auto) 60 % (31-73) Lymphocytes (%) (Auto) 28 % (24-48) Monocytes (%) (Auto) 12 % (0-9) Eosinophils (%) (Auto) 0 % (0-3) Basophils (%) (Auto) 0 % (0-3) Neutrophils # (Auto) 2.6 x10^3/uL (1.8-7.7) Lymphocytes # (Auto) 1.2 x10^3/uL (1.0-4.8) Monocytes # (Auto) 0.5 x10^3/uL (0.0-1.1) Eosinophils # (Auto) 0.0 x10^3/uL (0.0-0.7) Basophils # (Auto) 0.0 x10^3/uL (0.0-0.2) Prothrombin Time 14.5 SEC (11.7-14.0) Prothromb Time International Ratio 1.2 (0.8-1.1) Sodium Level 143 mmol/L (136-145) Potassium Level 3.7 mmol/L (3.5-5.1) Chloride Level 106 mmol/L (98-107) Carbon Dioxide Level 31 mmol/L (21-32) Anion Gap 6 (6-14) Blood Urea Nitrogen 25 mg/dL (8-26) Creatinine 1.2 mg/dL (0.7-1.3) Estimated GFR (Cockcroft-Gault) 69.8 BUN/Creatinine Ratio 21 (6-20) Glucose Level 91 mg/dL (70-99) Calcium Level 13.0 mg/dL (8.5-10.1) Phosphorus Level 3.3 mg/dL (2.6-4.7) Magnesium Level 1.9 mg/dL (1.8-2.4) Total Bilirubin 0.3 mg/dL (0.2-1.0) Aspartate Amino Transf (AST/SGOT) 18 U/L (15-37) Alanine Aminotransferase (ALT/SGPT) 7 U/L (16-63) Alkaline Phosphatase 76 U/L (46-116) Troponin I Quantitative < 0.017 ng/mL (0.000-0.055) YB-Wjk-Z-Type Natriuretic Peptide 728 pg/mL (0-449) Total Protein 10.0 g/dL (6.4-8.2) Albumin 1.8 g/dL (3.4-5.0) Albumin/Globulin Ratio 0.2 (1.0-1.7) Lipase 78 U/L (73-393) Prostate Specific Antigen 0.05 ng/mL (0.00-4.00) Thyroid Stimulating Hormone (TSH) 4.928 uIU/mL (0.358-3.74) Free Thyroxine 0.68 ng/dL (0.76-1.46) Urine Collection Type U cath Urine Color Yellow Urine Clarity Cloudy Urine pH 6.5 Urine Specific [place] 1.015 Urine Protein 30 mg/dL (NEG-TRACE) Urine Glucose (UA) Negative mg/dL (NEG) Urine Ketones (Stick) Negative mg/dL (NEG) Urine Blood Small (NEG) Urine Nitrite Negative (NEG) Urine Bilirubin Negative (NEG) Urine Urobilinogen Dipstick 1.0 mg/dL (0.2 mg/dL) Urine Leukocyte Esterase Negative (NEG) Urine RBC 3-5 /HPF (0-2) Urine WBC Occ /HPF (0-4) Urine Amorphous Sediment Present /HPF Urine Bacteria Few /HPF (0-FEW) Urine Hyaline Casts Occasional /HPF Ammonia 49 mcmol/L (11-34) Erythrocyte Sedimentation Rate > 130 (0-15) Assessment/Plan Assessment/Plan History of prostate cancer s/p prostatectomy with unknown followup, bone lesions, AMS, unintentional weight loss PSA 0.05 in hospital - less likely for metastatic recurrence of prostate cancer Bone scan being done today Heme/onc note: leading toward multiple myeloma, deferring biopsy at this time Will discuss with FRANCES Briones MD 11/25/18 8144: UROLOGY CONSULT Assessment/Plan Assessment/Plan bacteruria, recommend ucx. treat with one week of abx if +for uti. cap s/p RRP . psa is undetectable. Will stop checking psa from now. Osseus lesions not of CAP etiology. Will sign off, call w?. JENARO SOTOMYAOR Nov 25, 2018 10:08 FRANCES WALKER MD Nov 25, 2018 18:24
--- NOTE | 2018-11-25 10:18 | PDOC ---
PULMONARY PROGRESS NOTES Subjective remains lethargic Vitals Vital Signs Date Time Temp Pulse Resp B/P (MAP) Pulse Ox O2 Delivery O2 Flow Rate FiO2 11/25/18 07:00 97.7 97 18 168/74 (105) 98 Room Air 97.7 General: Lethargic Lungs: Other (decrease bs) Cardiovascular: S1 Abdomen: Soft Extremities: No Edema Skin: Warm Labs Laboratory Tests Test 11/24/18 10:45 11/24/18 11:55 11/25/18 03:40 11/25/18 03:45 White Blood Count 4.4 x10^3/uL (4.0-11.0) Red Blood Count 2.34 x10^6/uL (4.30-5.70) Hemoglobin 8.0 g/dL (13.0-17.5) Hematocrit 24.0 % (39.0-53.0) Mean Corpuscular Volume 102 fL (79-100) Mean Corpuscular Hemoglobin 34 pg (25-35) Mean Corpuscular Hemoglobin Concent 34 g/dL (31-37) Red Cell Distribution Width 14.9 % (11.5-14.5) Platelet Count 385 x10^3/uL (140-400) Neutrophils (%) (Auto) 60 % (31-73) Lymphocytes (%) (Auto) 28 % (24-48) Monocytes (%) (Auto) 12 % (0-9) Eosinophils (%) (Auto) 0 % (0-3) Basophils (%) (Auto) 0 % (0-3) Neutrophils # (Auto) 2.6 x10^3/uL (1.8-7.7) Lymphocytes # (Auto) 1.2 x10^3/uL (1.0-4.8) Monocytes # (Auto) 0.5 x10^3/uL (0.0-1.1) Eosinophils # (Auto) 0.0 x10^3/uL (0.0-0.7) Basophils # (Auto) 0.0 x10^3/uL (0.0-0.2) Prothrombin Time 14.5 SEC (11.7-14.0) Prothromb Time International Ratio 1.2 (0.8-1.1) Sodium Level 143 mmol/L (136-145) Potassium Level 3.7 mmol/L (3.5-5.1) Chloride Level 106 mmol/L (98-107) Carbon Dioxide Level 31 mmol/L (21-32) Anion Gap 6 (6-14) Blood Urea Nitrogen 25 mg/dL (8-26) Creatinine 1.2 mg/dL (0.7-1.3) Estimated GFR (Cockcroft-Gault) 69.8 BUN/Creatinine Ratio 21 (6-20) Glucose Level 91 mg/dL (70-99) Calcium Level 13.0 mg/dL (8.5-10.1) Phosphorus Level 3.3 mg/dL (2.6-4.7) Magnesium Level 1.9 mg/dL (1.8-2.4) Total Bilirubin 0.3 mg/dL (0.2-1.0) Aspartate Amino Transf (AST/SGOT) 18 U/L (15-37) Alanine Aminotransferase (ALT/SGPT) 7 U/L (16-63) Alkaline Phosphatase 76 U/L (46-116) Troponin I Quantitative < 0.017 ng/mL (0.000-0.055) AJ-Tgd-P-Type Natriuretic Peptide 728 pg/mL (0-449) Total Protein 10.0 g/dL (6.4-8.2) Albumin 1.8 g/dL (3.4-5.0) Albumin/Globulin Ratio 0.2 (1.0-1.7) Lipase 78 U/L (73-393) Prostate Specific Antigen 0.05 ng/mL (0.00-4.00) Thyroid Stimulating Hormone (TSH) 4.928 uIU/mL (0.358-3.74) Free Thyroxine 0.68 ng/dL (0.76-1.46) Urine Collection Type U cath Urine Color Yellow Urine Clarity Cloudy Urine pH 6.5 Urine Specific [place] 1.015 Urine Protein 30 mg/dL (NEG-TRACE) Urine Glucose (UA) Negative mg/dL (NEG) Urine Ketones (Stick) Negative mg/dL (NEG) Urine Blood Small (NEG) Urine Nitrite Negative (NEG) Urine Bilirubin Negative (NEG) Urine Urobilinogen Dipstick 1.0 mg/dL (0.2 mg/dL) Urine Leukocyte Esterase Negative (NEG) Urine RBC 3-5 /HPF (0-2) Urine WBC Occ /HPF (0-4) Urine Amorphous Sediment Present /HPF Urine Bacteria Few /HPF (0-FEW) Urine Hyaline Casts Occasional /HPF Ammonia 49 mcmol/L (11-34) Erythrocyte Sedimentation Rate > 130 (0-15) Laboratory Tests Test 11/24/18 10:45 11/24/18 11:55 11/25/18 03:40 11/25/18 03:45 White Blood Count 4.4 x10^3/uL (4.0-11.0) Red Blood Count 2.34 x10^6/uL (4.30-5.70) Hemoglobin 8.0 g/dL (13.0-17.5) Hematocrit 24.0 % (39.0-53.0) Mean Corpuscular Volume 102 fL (79-100) Mean Corpuscular Hemoglobin 34 pg (25-35) Mean Corpuscular Hemoglobin Concent 34 g/dL (31-37) Red Cell Distribution Width 14.9 % (11.5-14.5) Platelet Count 385 x10^3/uL (140-400) Neutrophils (%) (Auto) 60 % (31-73) Lymphocytes (%) (Auto) 28 % (24-48) Monocytes (%) (Auto) 12 % (0-9) Eosinophils (%) (Auto) 0 % (0-3) Basophils (%) (Auto) 0 % (0-3) Neutrophils # (Auto) 2.6 x10^3/uL (1.8-7.7) Lymphocytes # (Auto) 1.2 x10^3/uL (1.0-4.8) Monocytes # (Auto) 0.5 x10^3/uL (0.0-1.1) Eosinophils # (Auto) 0.0 x10^3/uL (0.0-0.7) Basophils # (Auto) 0.0 x10^3/uL (0.0-0.2) Prothrombin Time 14.5 SEC (11.7-14.0) Prothromb Time International Ratio 1.2 (0.8-1.1) Sodium Level 143 mmol/L (136-145) Potassium Level 3.7 mmol/L (3.5-5.1) Chloride Level 106 mmol/L (98-107) Carbon Dioxide Level 31 mmol/L (21-32) Anion Gap 6 (6-14) Blood Urea Nitrogen 25 mg/dL (8-26) Creatinine 1.2 mg/dL (0.7-1.3) Estimated GFR (Cockcroft-Gault) 69.8 BUN/Creatinine Ratio 21 (6-20) Glucose Level 91 mg/dL (70-99) Calcium Level 13.0 mg/dL (8.5-10.1) Phosphorus Level 3.3 mg/dL (2.6-4.7) Magnesium Level 1.9 mg/dL (1.8-2.4) Total Bilirubin 0.3 mg/dL (0.2-1.0) Aspartate Amino Transf (AST/SGOT) 18 U/L (15-37) Alanine Aminotransferase (ALT/SGPT) 7 U/L (16-63) Alkaline Phosphatase 76 U/L (46-116) Troponin I Quantitative < 0.017 ng/mL (0.000-0.055) OZ-Ilp-F-Type Natriuretic Peptide 728 pg/mL (0-449) Total Protein 10.0 g/dL (6.4-8.2) Albumin 1.8 g/dL (3.4-5.0) Albumin/Globulin Ratio 0.2 (1.0-1.7) Lipase 78 U/L (73-393) Prostate Specific Antigen 0.05 ng/mL (0.00-4.00) Thyroid Stimulating Hormone (TSH) 4.928 uIU/mL (0.358-3.74) Free Thyroxine 0.68 ng/dL (0.76-1.46) Urine Collection Type U cath Urine Color Yellow Urine Clarity Cloudy Urine pH 6.5 Urine Specific [place] 1.015 Urine Protein 30 mg/dL (NEG-TRACE) Urine Glucose (UA) Negative mg/dL (NEG) Urine Ketones (Stick) Negative mg/dL (NEG) Urine Blood Small (NEG) Urine Nitrite Negative (NEG) Urine Bilirubin Negative (NEG) Urine Urobilinogen Dipstick 1.0 mg/dL (0.2 mg/dL) Urine Leukocyte Esterase Negative (NEG) Urine RBC 3-5 /HPF (0-2) Urine WBC Occ /HPF (0-4) Urine Amorphous Sediment Present /HPF Urine Bacteria Few /HPF (0-FEW) Urine Hyaline Casts Occasional /HPF Ammonia 49 mcmol/L (11-34) Erythrocyte Sedimentation Rate > 130 (0-15) Impression . 1. Unexplained weight loss and loss of appetite along with declining mental function. likely underlying malignancy. No significant tobacco history. 2. No significant tobacco history. 3. Hypercalcemia to be managed per PCP. 4. Severe protein-calorie malnutrition. 5. Hypercalcemia of malignancy 6. Abnormal ct chest with multiple right rib destructive lesions and small RUL cavitary lesion. suspect lung malignancy, ? metastatic, ? MM Plan . 1. d/w family. agree with right rib biopsy for definite dx 2. Follow oncology rec 3. Treatment of hypercalcemia per PCP. 4. Discussed with CONNIE ARITA MD Nov 25, 2018 10:18
[2018-11-25 11:05] VITALS: BP 155/73
--- NOTE | 2018-11-25 11:06 | PDOC ---
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 Also note anemia, hypercalcemia, abnormal thyroid studies, elevated sedimentation rate, elevated ammonia level Lytic lesions, throughout body Plan MRI of the brain Await additional laboratory studies Rehabilitation modalities Thiamine Treat medical issues, oncology following Fully discussed with patient and his family. Subjective Denies pain Objective Vital Signs Date Time Temp Pulse Resp B/P (MAP) Pulse Ox O2 Delivery O2 Flow Rate FiO2 11/25/18 07:00 97.7 97 18 168/74 (105) 98 Room Air 97.7 Intake and Output 11/25/18 07:00 Intake Total 0 ml Output Total 275 ml Balance -275 ml Intake Oral 0 ml Output Urine Total 275 ml # Voids 1 PHYSICAL EXAM Alert. Oriented only to person. PERRL. EOMI. CN: no focal findings. Muscle tone: normal. Muscle strength: 4/5 DTR: 2+ Plantar reflex: flexor Gait: not examined in bed. Sensory exam: no abnormal findings. No cerebellar signs elicited. Review of Relevant I have reviewed the following items reyna (where applicable) has been applied. Labs Laboratory Tests Test 11/24/18 10:45 11/24/18 11:55 11/25/18 03:40 11/25/18 03:45 White Blood Count 4.4 x10^3/uL (4.0-11.0) Red Blood Count 2.34 x10^6/uL (4.30-5.70) Hemoglobin 8.0 g/dL (13.0-17.5) Hematocrit 24.0 % (39.0-53.0) Mean Corpuscular Volume 102 fL (79-100) Mean Corpuscular Hemoglobin 34 pg (25-35) Mean Corpuscular Hemoglobin Concent 34 g/dL (31-37) Red Cell Distribution Width 14.9 % (11.5-14.5) Platelet Count 385 x10^3/uL (140-400) Neutrophils (%) (Auto) 60 % (31-73) Lymphocytes (%) (Auto) 28 % (24-48) Monocytes (%) (Auto) 12 % (0-9) Eosinophils (%) (Auto) 0 % (0-3) Basophils (%) (Auto) 0 % (0-3) Neutrophils # (Auto) 2.6 x10^3/uL (1.8-7.7) Lymphocytes # (Auto) 1.2 x10^3/uL (1.0-4.8) Monocytes # (Auto) 0.5 x10^3/uL (0.0-1.1) Eosinophils # (Auto) 0.0 x10^3/uL (0.0-0.7) Basophils # (Auto) 0.0 x10^3/uL (0.0-0.2) Prothrombin Time 14.5 SEC (11.7-14.0) Prothromb Time International Ratio 1.2 (0.8-1.1) Sodium Level 143 mmol/L (136-145) Potassium Level 3.7 mmol/L (3.5-5.1) Chloride Level 106 mmol/L (98-107) Carbon Dioxide Level 31 mmol/L (21-32) Anion Gap 6 (6-14) Blood Urea Nitrogen 25 mg/dL (8-26) Creatinine 1.2 mg/dL (0.7-1.3) Estimated GFR (Cockcroft-Gault) 69.8 BUN/Creatinine Ratio 21 (6-20) Glucose Level 91 mg/dL (70-99) Calcium Level 13.0 mg/dL (8.5-10.1) Phosphorus Level 3.3 mg/dL (2.6-4.7) Magnesium Level 1.9 mg/dL (1.8-2.4) Total Bilirubin 0.3 mg/dL (0.2-1.0) Aspartate Amino Transf (AST/SGOT) 18 U/L (15-37) Alanine Aminotransferase (ALT/SGPT) 7 U/L (16-63) Alkaline Phosphatase 76 U/L (46-116) Troponin I Quantitative < 0.017 ng/mL (0.000-0.055) DQ-Oqh-H-Type Natriuretic Peptide 728 pg/mL (0-449) Total Protein 10.0 g/dL (6.4-8.2) Albumin 1.8 g/dL (3.4-5.0) Albumin/Globulin Ratio 0.2 (1.0-1.7) Lipase 78 U/L (73-393) Prostate Specific Antigen 0.05 ng/mL (0.00-4.00) Thyroid Stimulating Hormone (TSH) 4.928 uIU/mL (0.358-3.74) Free Thyroxine 0.68 ng/dL (0.76-1.46) Urine Collection Type U cath Urine Color Yellow Urine Clarity Cloudy Urine pH 6.5 Urine Specific [place] 1.015 Urine Protein 30 mg/dL (NEG-TRACE) Urine Glucose (UA) Negative mg/dL (NEG) Urine Ketones (Stick) Negative mg/dL (NEG) Urine Blood Small (NEG) Urine Nitrite Negative (NEG) Urine Bilirubin Negative (NEG) Urine Urobilinogen Dipstick 1.0 mg/dL (0.2 mg/dL) Urine Leukocyte Esterase Negative (NEG) Urine RBC 3-5 /HPF (0-2) Urine WBC Occ /HPF (0-4) Urine Amorphous Sediment Present /HPF Urine Bacteria Few /HPF (0-FEW) Urine Hyaline Casts Occasional /HPF Ammonia 49 mcmol/L (11-34) Erythrocyte Sedimentation Rate > 130 (0-15) Vitamin B12 Level 334 pg/mL (247-911) Laboratory Tests Test 11/24/18 11:55 11/25/18 03:40 11/25/18 03:45 Urine Collection Type U cath Urine Color Yellow Urine Clarity Cloudy Urine pH 6.5 Urine Specific [place] 1.015 Urine Protein 30 mg/dL (NEG-TRACE) Urine Glucose (UA) Negative mg/dL (NEG) Urine Ketones (Stick) Negative mg/dL (NEG) Urine Blood Small (NEG) Urine Nitrite Negative (NEG) Urine Bilirubin Negative (NEG) Urine Urobilinogen Dipstick 1.0 mg/dL (0.2 mg/dL) Urine Leukocyte Esterase Negative (NEG) Urine RBC 3-5 /HPF (0-2) Urine WBC Occ /HPF (0-4) Urine Amorphous Sediment Present /HPF Urine Bacteria Few /HPF (0-FEW) Urine Hyaline Casts Occasional /HPF Ammonia 49 mcmol/L (11-34) Erythrocyte Sedimentation Rate > 130 (0-15) Vitamin B12 Level 334 pg/mL (247-911) Medications Current Medications Sodium Chloride 1,000 ml @ 100 mls/hr Q10H IV Last administered on 11/24/18at 11:21; Start 9/10/19 at 10:38; Stop 11/24/18 at 14:02; Status DC Amino Acids/ Glycerin/ Electrolytes 1,000 ml @ 75 mls/hr [id number] IV Last administered on 11/25/18at 06:29; Start 11/24/18 at 14:00 Thiamine HCl 100 mg DAILY IM Last administered on 11/25/18at 09:06; Start 11/24/18 at 15:00; Stop 11/26/18 at 09:01 Multivitamins (Thera M Plus) 1 tab DAILY PO ; Start 11/24/18 at 15:00 Zoledronic Acid 100 ml @ 400 mls/hr 1X ONCE IV Last administered on 11/25/18at 10:15; Start 11/25/18 at 10:00; Stop 11/25/18 at 10:14; Status DC Vitals/I & O Vital Sign - Last 24 Hours 11/24/18 11/24/18 11/24/18 11/24/18 12:02 13:00 13:18 16:09 Temp 97.5 97.9 97.5 97.9 Pulse 68 66 78 Resp 12 14 B/P (MAP) 198/79 (118) 158/64 (95) Pulse Ox 97 96 96 O2 Delivery Room Air Room Air 11/24/18 11/24/18 11/24/18 11/25/18 19:47 20:00 23:46 03:55 Temp 98.2 98.1 97.7 98.2 98.1 97.7 Pulse 75 72 66 Resp 18 18 18 B/P (MAP) 165/99 (121) 167/89 (115) 168/73 (104) Pulse Ox 97 97 96 O2 Delivery Room Air Room Air Room Air Room Air 11/25/18 07:00 Temp 97.7 97.7 Pulse 97 Resp 18 B/P (MAP) 168/74 (105) Pulse Ox 98 O2 Delivery Room Air Intake and Output 11/24/18 11/24/18 11/25/18 15:00 23:00 07:00 Intake Total 0 ml Output Total 275 ml Balance -275 ml Images MRI Brain without contrast History: Altered mental status Technique: Multiplanar, multisequential noncontrast MR imaging was performed of the brain. Comparison: CT head the same day Findings: There is some motion degradation. There is no restricted diffusion suggestive of recent infarct. There is no intra-axial mass effect or midline shift. There is mild lateral ventriculomegaly likely due to mild supratentorial atrophy. There is scattered overall mild T2 and FLAIR hyperintense signal abnormality of the supratentorial parenchyma bilaterally greatest of the frontal lobes. There is no significant hemosiderin deposition of the right,. There is preservation of the major arterial flow voids at the skull base. There is patchy minimal ethmoid air cell mucosal thickening. There is relative decreased T1 signal of the more posterior central clivus there is also decreased T1 signal of the visualized cervical marrow and also of the mandibular condyles greater on the left. Impression: 1. There is no evidence of recent infarct or intracranial mass effect. Overall mild T2 and FLAIR hyperintense abnormality of the supratentorial parenchyma bilaterally is nonspecific, more commonly due to chronic microvascular ischemic disease in a patient this age. There is mild supratentorial atrophy. 2. There is abnormal decreased T1 signal of the marrow of the clivus, visualized cervical marrow, and also of the mandibular condyles greater on the left concerning for underlying marrow replacing process/marrow disorder. LUCIANA CANTRELL MD Nov 25, 2018 11:05
--- NOTE | 2018-11-25 11:06 | PDOC ---
PROGRESS NOTES History of Present Illness History of Present Illness ASSESSMENT AND PLAN: Mental status change, weight loss, mri head 11/24 chronic microvascular ischemic disease in a patient this age. mild supratentorial atrophy. abnormal decreased T1 signal of the marrow of the clivus, visualized cervical marrow, and also of the mandibular condyles greater on the left concerning for underlying marrow replacing process/marrow disorder. on ct chest Patchy opacity measuring 1.5 cm seen in the right upper lobe with pleural retraction. Consolidation is seen in the bilateral posterior lung bases. Otherwise, lungs are clear. 4.3 x 2.2 cm lesion is seen centered on the anterior right fifth rib with soft tissue component. Another lytic lesion is seen centered on the posterior eighth rib with rib destruction measuring approximately 3.6 x 1.8 cm. Numerous lucencies seen in the ribs, spine and sternum. 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 history of prostate cancer with no followup.,possible metastatic prostate cancer, elevated serum ammonia hypertension check a PSA and bone scan. Consult Oncology, consult Urology, consult Neurology consult Pulmonary Medicine IV procalamine, daily labs, PT/OT, Zometa lactulose 15cc po bid 39 min pt exam, chart review, > 50% of time spent with exam, chart review, pt care coordination Vitals Vitals Vital Signs Date Time Temp Pulse Resp B/P (MAP) Pulse Ox O2 Delivery O2 Flow Rate FiO2 11/25/18 07:00 97.7 97 18 168/74 (105) 98 Room Air 97.7 Physical Exam Physical Exam GENERAL: Cachectic. HEENT: Head is normocephalic, atraumatic, pupils were equally round and reactive to light and accommodation. NECK: Supple, no JVD, no thyromegaly was noted. LUNGS: Clear to auscultation in all lung haddad without rhonchi or wheezing. HEART: RRR, S1, S2 present. Peripheral pulses intact, no obvious murmurs were noted. ABDOMEN: Soft, nontender. Positive bowel sounds no organomegaly, normal bowel sounds. EXTREMITIES: Without any cyanosis, clubbing, or edema. Pedal pulses intact, Homans sign is negative. NEUROLOGIC: He will not talk to me. PSYCHIATRIC: Normal affect, normal mood. Stable. SKIN: No ulcerations or rashes, good skin turgor, no jaundice. VASCULAR: Good capillary refill, neurovascular bundle appears to be intact. General: Cooperative, No acute distress Lungs: Clear, Other (decrease bs) Abdomen: Soft Extremities: No cyanosis Labs LABS PROCEDURE: CT CHEST ABDOMEN PELVIS WO PQRS Compliance statement: One or more of the following individualized dose reduction techniques were utilized for this examination: 1. Automated exposure control. 2. Adjustment of the mA and/or kV according to patient size. 3. Use of iterative reconstruction technique. Indication:Explain weight loss. TECHNIQUE: CT chest, abdomen and pelviswithout IV contrast with multiplanar reformats. COMPARISON: None FINDINGS: Limited exam due to lack of IV contrast. Heart is normal in size. Trace bilateral pleural effusions. No mediastinal lymph nodes. Evaluation of hilar lymphadenopathy is limited due to lack of IV contrast. Patchy opacity measuring 1.5 cm seen in the right upper lobe with pleural retraction. Consolidation is seen in the bilateral posterior lung bases. Otherwise, lungs are clear. 4.3 x 2.2 cm lesion is seen centered on the anterior right fifth rib with soft tissue component. Another lytic lesion is seen centered on the posterior eighth rib with rib destruction measuring approximately 3.6 x 1.8 cm. Numerous lucencies seen in the ribs, spine and sternum. Liver is normal in morphology. No radiopaque gallstones. Spleen is unenlarged. No nephrolithiasis. Moderate diffuse atherosclerotic plaque in the abdominal aorta and bilateral iliac arteries. Urinary bladder demonstrates no radiopaque stone. Status post prostatectomy and bilateral pelvic sidewall lymph node dissection. No bowel obstruction. Numerous lucencies are seen in the pelvic bones and lumbar spine. IMPRESSION: Significantly limited exam due to lack of IV contrast. 1. Diffusely lytic osseous lesions. Differential diagnoses includes multiple myeloma or metastasis. 2. Right upper lobe patchy opacity, nonspecific may be or scar. Follow-up recommended in 3-4 months. Electronically signed by: Shan Hunt DO (11/24/2018 4:31 PM) [id number] MRI Brain without contrast History: Altered mental status Technique: Multiplanar, multisequential noncontrast MR imaging was performed of the brain. Comparison: CT head the same day Findings: There is some motion degradation. There is no restricted diffusion suggestive of recent infarct. There is no intra-axial mass effect or midline shift. There is mild lateral ventriculomegaly likely due to mild supratentorial atrophy. There is scattered overall mild T2 and FLAIR hyperintense signal abnormality of the supratentorial parenchyma bilaterally greatest of the frontal lobes. There is no significant hemosiderin deposition of the right,. There is preservation of the major arterial flow voids at the skull base. There is patchy minimal ethmoid air cell mucosal thickening. There is relative decreased T1 signal of the more posterior central clivus there is also decreased T1 signal of the visualized cervical marrow and also of the mandibular condyles greater on the left. Impression: 1. There is no evidence of recent infarct or intracranial mass effect. Overall mild T2 and FLAIR hyperintense abnormality of the supratentorial parenchyma bilaterally is nonspecific, more commonly due to chronic microvascular ischemic disease in a patient this age. There is mild supratentorial atrophy. 2. There is abnormal decreased T1 signal of the marrow of the clivus, visualized cervical marrow, and also of the mandibular condyles greater on the left concerning for underlying marrow replacing process/marrow disorder. Electronically signed by: Tong Vanegas MD (11/24/2018 4:21 PM) [id number] Laboratory Tests Test 11/24/18 11:55 11/25/18 03:40 11/25/18 03:45 Urine Collection Type U cath Urine Color Yellow Urine Clarity Cloudy Urine pH 6.5 Urine Specific [place] 1.015 Urine Protein 30 mg/dL (NEG-TRACE) Urine Glucose (UA) Negative mg/dL (NEG) Urine Ketones (Stick) Negative mg/dL (NEG) Urine Blood Small (NEG) Urine Nitrite Negative (NEG) Urine Bilirubin Negative (NEG) Urine Urobilinogen Dipstick 1.0 mg/dL (0.2 mg/dL) Urine Leukocyte Esterase Negative (NEG) Urine RBC 3-5 /HPF (0-2) Urine WBC Occ /HPF (0-4) Urine Amorphous Sediment Present /HPF Urine Bacteria Few /HPF (0-FEW) Urine Hyaline Casts Occasional /HPF Ammonia 49 mcmol/L (11-34) Erythrocyte Sedimentation Rate > 130 (0-15) Vitamin B12 Level 334 pg/mL (247-911) Assessment and Plan Assessmemt and Plan Problems Medical Problems: (1) Altered mental status Status: Acute (2) Anemia Status: Acute (3) Hypercalcemia Status: Acute (4) Weakness Status: Acute Comment Review of Relevant I have reviewed the following items reyna (where applicable) has been applied. Labs Laboratory Tests Test 11/24/18 10:45 11/24/18 11:55 11/25/18 03:40 11/25/18 03:45 White Blood Count 4.4 x10^3/uL (4.0-11.0) Red Blood Count 2.34 x10^6/uL (4.30-5.70) Hemoglobin 8.0 g/dL (13.0-17.5) Hematocrit 24.0 % (39.0-53.0) Mean Corpuscular Volume 102 fL (79-100) Mean Corpuscular Hemoglobin 34 pg (25-35) Mean Corpuscular Hemoglobin Concent 34 g/dL (31-37) Red Cell Distribution Width 14.9 % (11.5-14.5) Platelet Count 385 x10^3/uL (140-400) Neutrophils (%) (Auto) 60 % (31-73) Lymphocytes (%) (Auto) 28 % (24-48) Monocytes (%) (Auto) 12 % (0-9) Eosinophils (%) (Auto) 0 % (0-3) Basophils (%) (Auto) 0 % (0-3) Neutrophils # (Auto) 2.6 x10^3/uL (1.8-7.7) Lymphocytes # (Auto) 1.2 x10^3/uL (1.0-4.8) Monocytes # (Auto) 0.5 x10^3/uL (0.0-1.1) Eosinophils # (Auto) 0.0 x10^3/uL (0.0-0.7) Basophils # (Auto) 0.0 x10^3/uL (0.0-0.2) Prothrombin Time 14.5 SEC (11.7-14.0) Prothromb Time International Ratio 1.2 (0.8-1.1) Sodium Level 143 mmol/L (136-145) Potassium Level 3.7 mmol/L (3.5-5.1) Chloride Level 106 mmol/L (98-107) Carbon Dioxide Level 31 mmol/L (21-32) Anion Gap 6 (6-14) Blood Urea Nitrogen 25 mg/dL (8-26) Creatinine 1.2 mg/dL (0.7-1.3) Estimated GFR (Cockcroft-Gault) 69.8 BUN/Creatinine Ratio 21 (6-20) Glucose Level 91 mg/dL (70-99) Calcium Level 13.0 mg/dL (8.5-10.1) Phosphorus Level 3.3 mg/dL (2.6-4.7) Magnesium Level 1.9 mg/dL (1.8-2.4) Total Bilirubin 0.3 mg/dL (0.2-1.0) Aspartate Amino Transf (AST/SGOT) 18 U/L (15-37) Alanine Aminotransferase (ALT/SGPT) 7 U/L (16-63) Alkaline Phosphatase 76 U/L (46-116) Troponin I Quantitative < 0.017 ng/mL (0.000-0.055) PD-Uxl-R-Type Natriuretic Peptide 728 pg/mL (0-449) Total Protein 10.0 g/dL (6.4-8.2) Albumin 1.8 g/dL (3.4-5.0) Albumin/Globulin Ratio 0.2 (1.0-1.7) Lipase 78 U/L (73-393) Prostate Specific Antigen 0.05 ng/mL (0.00-4.00) Thyroid Stimulating Hormone (TSH) 4.928 uIU/mL (0.358-3.74) Free Thyroxine 0.68 ng/dL (0.76-1.46) Urine Collection Type U cath Urine Color Yellow Urine Clarity Cloudy Urine pH 6.5 Urine Specific [place] 1.015 Urine Protein 30 mg/dL (NEG-TRACE) Urine Glucose (UA) Negative mg/dL (NEG) Urine Ketones (Stick) Negative mg/dL (NEG) Urine Blood Small (NEG) Urine Nitrite Negative (NEG) Urine Bilirubin Negative (NEG) Urine Urobilinogen Dipstick 1.0 mg/dL (0.2 mg/dL) Urine Leukocyte Esterase Negative (NEG) Urine RBC 3-5 /HPF (0-2) Urine WBC Occ /HPF (0-4) Urine Amorphous Sediment Present /HPF Urine Bacteria Few /HPF (0-FEW) Urine Hyaline Casts Occasional /HPF Ammonia 49 mcmol/L (11-34) Erythrocyte Sedimentation Rate > 130 (0-15) Vitamin B12 Level 334 pg/mL (247-911) Laboratory Tests Test 11/24/18 11:55 11/25/18 03:40 11/25/18 03:45 Urine Collection Type U cath Urine Color Yellow Urine Clarity Cloudy Urine pH 6.5 Urine Specific [place] 1.015 Urine Protein 30 mg/dL (NEG-TRACE) Urine Glucose (UA) Negative mg/dL (NEG) Urine Ketones (Stick) Negative mg/dL (NEG) Urine Blood Small (NEG) Urine Nitrite Negative (NEG) Urine Bilirubin Negative (NEG) Urine Urobilinogen Dipstick 1.0 mg/dL (0.2 mg/dL) Urine Leukocyte Esterase Negative (NEG) Urine RBC 3-5 /HPF (0-2) Urine WBC Occ /HPF (0-4) Urine Amorphous Sediment Present /HPF Urine Bacteria Few /HPF (0-FEW) Urine Hyaline Casts Occasional /HPF Ammonia 49 mcmol/L (11-34) Erythrocyte Sedimentation Rate > 130 (0-15) Vitamin B12 Level 334 pg/mL (247-911) Medications Current Medications Sodium Chloride 1,000 ml @ 100 mls/hr Q10H IV Last administered on 11/24/18at 11:21; Start 11/24/18 at 10:38; Stop 11/24/18 at 14:02; Status DC Amino Acids/ Glycerin/ Electrolytes 1,000 ml @ 75 mls/hr [id number] IV Last administered on 11/25/18at 06:29; Start 11/24/18 at 14:00 Thiamine HCl 100 mg DAILY IM Last administered on 11/25/18at 09:06; Start 11/24/18 at 15:00; Stop 11/26/18 at 09:01 Multivitamins (Thera M Plus) 1 tab DAILY PO ; Start 11/24/18 at 15:00 Zoledronic Acid 100 ml @ 400 mls/hr 1X ONCE IV Last administered on 11/25/18at 10:15; Start 11/25/18 at 10:00; Stop 11/25/18 at 10:14; Status DC Vitals/I & O Vital Sign - Last 24 Hours 11/24/18 11/24/18 11/24/18 11/24/18 12:02 13:00 13:18 16:09 Temp 97.5 97.9 97.5 97.9 Pulse 68 66 78 Resp 12 14 B/P (MAP) 198/79 (118) 158/64 (95) Pulse Ox 97 96 96 O2 Delivery Room Air Room Air 11/24/18 11/24/18 11/24/18 11/25/18 19:47 20:00 23:46 03:55 Temp 98.2 98.1 97.7 98.2 98.1 97.7 Pulse 75 72 66 Resp 18 18 18 B/P (MAP) 165/99 (121) 167/89 (115) 168/73 (104) Pulse Ox 97 97 96 O2 Delivery Room Air Room Air Room Air Room Air 11/25/18 07:00 Temp 97.7 97.7 Pulse 97 Resp 18 B/P (MAP) 168/74 (105) Pulse Ox 98 O2 Delivery Room Air Intake and Output 11/24/18 11/24/18 11/25/18 15:00 23:00 07:00 Intake Total 0 ml Output Total 275 ml Balance -275 ml Nutrition Consultation Dietary Evaluation: Recommendations by RD: Increase Calorie Intake, Protein supplementation, PPN/TPN Comments: REC continue PPN at this time REC diet per [employer] with appropriate supplements. Expected Outcomes/Goals: to meet > 75% est nutr needs via po intake Malnutrition Findings: Food and Nutrition Intake (Sev: <50% est energy req 5days Body Fat Depletion (Non Severe: Mild Depletion Weight Status: Underweight PEGGY MELENDEZ MD Nov 25, 2018 11:06
--- NOTE | 2018-11-25 14:12 | PDOC2 ---
PALLIATIVE CARE Palliative Care Note Palliative Care Consult requested by Dr. Hidalgo to address goals of care. Medical Assessment per medical records; MPRESSION: 1. Unexplained weight loss and loss of appetite along with declining mental function. Etiology not so obvious. No significant tobacco history. He does have hypercalcemia and malignancy should be ruled out. I would recommend doing CT chest, abdomen and pelvis. 2. No significant tobacco history. 3. Hypercalcemia to be managed per PCP. 4. Severe protein-calorie malnutrition. Mental status change, weight loss, mri head 11/24 chronic microvascular ischemic disease in a patient this age. mild supratentorial atrophy. abnormal decreased T1 signal of the marrow of the clivus, visualized cervical marrow, and also of the mandibular condyles greater on the left concerning for underlying marrow replacing process/marrow disorder. on ct chest Patchy opacity measuring 1.5 cm seen in the right upper lobe with pleural retraction. Consolidation is seen in the bilateral posterior lung bases. Otherwise, lungs are clear. 4.3 x 2.2 cm lesion is seen centered on the anterior right fifth rib with soft tissue component. Another lytic lesion is seen centered on the posterior eighth rib with rib destruction measuring approximately 3.6 x 1.8 cm. Numerous lucencies seen in the ribs, spine and sternum. 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 history of prostate cancer with no followup.,possible metastatic prostate cancer, elevated serum ammonia hypertension Patient resting comfortably. did not awaken Spoke with Jeni. Plan Family meeting tomorrow at 1300 PRABHAKAR SALAZAR Nov 25, 2018 14:12
[2018-11-25 15:00] VITALS: BP 173/77
--- NOTE | 2018-11-25 16:37 | RAD ---
Bone scan 11/25/2018 CLINICAL HISTORY: Metastatic prostate cancer. TECHNIQUE: After the intravenous administration of 25 mCi of Technetium 99m MDP, whole body imaging of the axial and appendicular skeleton was performed using the gamma camera. FINDINGS: Comparison is made to the patient's CT scan of the chest, abdomen and pelvis performed earlier today. Areas of increased activity are seen involving the proximal clavicles, left greater than right the anterior aspect of the right first rib and right second rib, the inferior right scapula, the lateral aspect of the left eighth rib and the right anterior superior sternum which correspond to lytic metastasis seen on the patient's CT scan. The extensive lytic lesions throughout the spine and bony pelvis seen on the patient's CT scan do not demonstrate increased activity on the bone scan. Areas of increased activity are seen involving both shoulders, both elbows, both hands and wrists, both hips, both knees and both feet and ankles which would be consistent with areas of degenerative change. IMPRESSION: Areas of increased activity are seen involving the medial clavicles, left greater than right, the superior sternum, the inferior right scapula, the anterior right first and second ribs and the left eighth rib which correspond to lytic metastasis seen on the patient's CT scan from earlier today. Electronically signed by: Abelardo Varner MD (11/25/2018 4:34 PM) [facility]
[2018-11-25 19:10] VITALS: BP 142/61
[2018-11-25] MEDS: LACTULOSE 20 GM/30 ML SOLUTION. PO SCH (20:04)
[2018-11-25 23:45] VITALS: BP 124/70
[2018-11-26] VITALS (15 sets, daily range): BP systolic 147–171; BP diastolic 65–79
[2018-11-26 03:53] LABS: BASO % 0 % (0-3); EOS % 0 % (0-3); LYMPH % 22 % (24-48); MEAN CORPUSCULAR HEMOGLOBIN 35 pg (25-35); MEAN CORPUSCULAR HGB CONC 34 g/dL (31-37); MEAN CORPUSCULAR VOLUME 102 fL (79-100); MONO # 0.4 x10^3/uL (0.0-1.1); MONO % 8 % (0-9); NEUT # 3.2 x10^3/uL (1.8-7.7); NEUT % 69 % (31-73); PLATELET COUNT 296 x10^3/uL (140-400); RED CELL DISTRIBUTION WIDTH 15.1 % (11.5-14.5); WHITE BLOOD COUNT 4.7 x10^3/uL (4.0-11.0)
[2018-11-26 04:02] LABS: HEMATOCRIT 19.3 % (39.0-53.0); HEMOGLOBIN 6.6 g/dL (13.0-17.5)
[2018-11-26 04:09] LABS: ALBUMIN 1.4 g/dL (3.4-5.0); ALBUMIN/GLOBULIN RATIO 0.2 (1.0-1.7); ALK PHOS 67 U/L (46-116); ANION GAP 6 (6-14); AST (SGOT) 16 U/L (15-37); BLOOD UREA NITROGEN 28 mg/dL (8-26); BUN/CREATININE RATIO 28 (6-20); CALCIUM 11.3 mg/dL (8.5-10.1); CARBON DIOXIDE 28 mmol/L (21-32); CHLORIDE 107 mmol/L (98-107); GFR 86.1; GLUCOSE 101 mg/dL (70-99); POTASSIUM 3.8 mmol/L (3.5-5.1); SODIUM 141 mmol/L (136-145); TOTAL BILIRUBIN 0.2 mg/dL (0.2-1.0)
[2018-11-26 04:13] LABS: ALT (SGPT) < 6 U/L (16-63)
--- NOTE | 2018-11-26 07:27 | NUR ---
Received critical labs and spoke to Dr. Cruz this am and received ok orders to transfuse 2 units of packed red blood cells. Pt states ok however alert and oriented x2, called and spoke to his daughter Stacy Hatfield and she gave ok over the phone with this nurse and Charge Nurse over the phone.
--- NOTE | 2018-11-26 11:10 | PDOC ---
PROGRESS NOTES History of Present Illness History of Present Illness ASSESSMENT AND PLAN: Mental status change, weight loss, mri head 11/24 chronic microvascular ischemic disease in a patient this age. mild supratentorial atrophy. abnormal decreased T1 signal of the marrow of the clivus, visualized cervical marrow, and also of the mandibular condyles greater on the left concerning for underlying marrow replacing process/marrow disorder. on ct chest Patchy opacity measuring 1.5 cm seen in the right upper lobe with pleural retraction. Consolidation is seen in the bilateral posterior lung bases. Otherwise, lungs are clear. 4.3 x 2.2 cm lesion is seen centered on the anterior right fifth rib with soft tissue component. Another lytic lesion is seen centered on the posterior eighth rib with rib destruction measuring approximately 3.6 x 1.8 cm. Numerous lucencies seen in the ribs, spine and sternum. 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 history of prostate cancer with no followup.,possible metastatic prostate cancer, elevated serum ammonia hypertension check a PSA and bone scan. Consult Oncology, consult Urology, consult Neurology consult Pulmonary Medicine IV procalamine, daily labs, PT/OT, Zometa lactulose 15cc po bid d/w and daughter. poor functional status.rec palliative care. 37 min pt exam, chart review, > 50% of time spent with exam, chart review, pt care coordination Vitals Vitals Vital Signs Date Time Temp Pulse Resp B/P (MAP) Pulse Ox O2 Delivery O2 Flow Rate FiO2 11/26/18 09:20 98.5 72 18 171/76 98.5 11/26/18 07:30 95 Room Air Physical Exam Physical Exam GENERAL: Cachectic. HEENT: Head is normocephalic, atraumatic, pupils were equally round and reactive to light and accommodation. NECK: Supple, no JVD, no thyromegaly was noted. LUNGS: Clear to auscultation in all lung haddad without rhonchi or wheezing. HEART: RRR, S1, S2 present. Peripheral pulses intact, no obvious murmurs were noted. ABDOMEN: Soft, nontender. Positive bowel sounds no organomegaly, normal bowel sounds. EXTREMITIES: Without any cyanosis, clubbing, or edema. Pedal pulses intact, Homans sign is negative. NEUROLOGIC: He will not talk to me. PSYCHIATRIC: Normal affect, normal mood. Stable. SKIN: No ulcerations or rashes, good skin turgor, no jaundice. VASCULAR: Good capillary refill, neurovascular bundle appears to be intact. General: Cooperative, No acute distress Lungs: Clear, Other (decrease bs) Abdomen: Soft Extremities: No cyanosis Labs LABS Laboratory Tests Test 11/26/18 03:25 White Blood Count 4.7 x10^3/uL (4.0-11.0) Red Blood Count 1.90 x10^6/uL (4.30-5.70) Hemoglobin 6.6 g/dL (13.0-17.5) Hematocrit 19.3 % (39.0-53.0) Mean Corpuscular Volume 102 fL (79-100) Mean Corpuscular Hemoglobin 35 pg (25-35) Mean Corpuscular Hemoglobin Concent 34 g/dL (31-37) Red Cell Distribution Width 15.1 % (11.5-14.5) Platelet Count 296 x10^3/uL (140-400) Neutrophils (%) (Auto) 69 % (31-73) Lymphocytes (%) (Auto) 22 % (24-48) Monocytes (%) (Auto) 8 % (0-9) Eosinophils (%) (Auto) 0 % (0-3) Basophils (%) (Auto) 0 % (0-3) Neutrophils # (Auto) 3.2 x10^3/uL (1.8-7.7) Lymphocytes # (Auto) 1.0 x10^3/uL (1.0-4.8) Monocytes # (Auto) 0.4 x10^3/uL (0.0-1.1) Eosinophils # (Auto) 0.0 x10^3/uL (0.0-0.7) Basophils # (Auto) 0.0 x10^3/uL (0.0-0.2) Sodium Level 141 mmol/L (136-145) Potassium Level 3.8 mmol/L (3.5-5.1) Chloride Level 107 mmol/L (98-107) Carbon Dioxide Level 28 mmol/L (21-32) Anion Gap 6 (6-14) Blood Urea Nitrogen 28 mg/dL (8-26) Creatinine 1.0 mg/dL (0.7-1.3) Estimated GFR (Cockcroft-Gault) 86.1 BUN/Creatinine Ratio 28 (6-20) Glucose Level 101 mg/dL (70-99) Calcium Level 11.3 mg/dL (8.5-10.1) Total Bilirubin 0.2 mg/dL (0.2-1.0) Aspartate Amino Transf (AST/SGOT) 16 U/L (15-37) Alanine Aminotransferase (ALT/SGPT) < 6 U/L (16-63) Alkaline Phosphatase 67 U/L (46-116) Ammonia 30 mcmol/L (11-34) Total Protein 9.0 g/dL (6.4-8.2) Albumin 1.4 g/dL (3.4-5.0) Albumin/Globulin Ratio 0.2 (1.0-1.7) Assessment and Plan Assessmemt and Plan Problems Medical Problems: (1) Altered mental status Status: Acute (2) Anemia Status: Acute (3) Hypercalcemia Status: Acute (4) Weakness Status: Acute Comment Review of Relevant I have reviewed the following items reyna (where applicable) has been applied. Labs Laboratory Tests Test 11/24/18 11:55 11/25/18 03:40 11/25/18 03:45 11/26/18 03:25 Urine Collection Type U cath Urine Color Yellow Urine Clarity Cloudy Urine pH 6.5 Urine Specific [place] 1.015 Urine Protein 30 mg/dL (NEG-TRACE) Urine Glucose (UA) Negative mg/dL (NEG) Urine Ketones (Stick) Negative mg/dL (NEG) Urine Blood Small (NEG) Urine Nitrite Negative (NEG) Urine Bilirubin Negative (NEG) Urine Urobilinogen Dipstick 1.0 mg/dL (0.2 mg/dL) Urine Leukocyte Esterase Negative (NEG) Urine RBC 3-5 /HPF (0-2) Urine WBC Occ /HPF (0-4) Urine Amorphous Sediment Present /HPF Urine Bacteria Few /HPF (0-FEW) Urine Hyaline Casts Occasional /HPF Ammonia 49 mcmol/L (11-34) 30 mcmol/L (11-34) Erythrocyte Sedimentation Rate > 130 (0-15) Vitamin B12 Level 334 pg/mL (247-911) White Blood Count 4.7 x10^3/uL (4.0-11.0) Red Blood Count 1.90 x10^6/uL (4.30-5.70) Hemoglobin 6.6 g/dL (13.0-17.5) Hematocrit 19.3 % (39.0-53.0) Mean Corpuscular Volume 102 fL (79-100) Mean Corpuscular Hemoglobin 35 pg (25-35) Mean Corpuscular Hemoglobin Concent 34 g/dL (31-37) Red Cell Distribution Width 15.1 % (11.5-14.5) Platelet Count 296 x10^3/uL (140-400) Neutrophils (%) (Auto) 69 % (31-73) Lymphocytes (%) (Auto) 22 % (24-48) Monocytes (%) (Auto) 8 % (0-9) Eosinophils (%) (Auto) 0 % (0-3) Basophils (%) (Auto) 0 % (0-3) Neutrophils # (Auto) 3.2 x10^3/uL (1.8-7.7) Lymphocytes # (Auto) 1.0 x10^3/uL (1.0-4.8) Monocytes # (Auto) 0.4 x10^3/uL (0.0-1.1) Eosinophils # (Auto) 0.0 x10^3/uL (0.0-0.7) Basophils # (Auto) 0.0 x10^3/uL (0.0-0.2) Sodium Level 141 mmol/L (136-145) Potassium Level 3.8 mmol/L (3.5-5.1) Chloride Level 107 mmol/L (98-107) Carbon Dioxide Level 28 mmol/L (21-32) Anion Gap 6 (6-14) Blood Urea Nitrogen 28 mg/dL (8-26) Creatinine 1.0 mg/dL (0.7-1.3) Estimated GFR (Cockcroft-Gault) 86.1 BUN/Creatinine Ratio 28 (6-20) Glucose Level 101 mg/dL (70-99) Calcium Level 11.3 mg/dL (8.5-10.1) Total Bilirubin 0.2 mg/dL (0.2-1.0) Aspartate Amino Transf (AST/SGOT) 16 U/L (15-37) Alanine Aminotransferase (ALT/SGPT) < 6 U/L (16-63) Alkaline Phosphatase 67 U/L (46-116) Total Protein 9.0 g/dL (6.4-8.2) Albumin 1.4 g/dL (3.4-5.0) Albumin/Globulin Ratio 0.2 (1.0-1.7) Laboratory Tests Test 11/26/18 03:25 White Blood Count 4.7 x10^3/uL (4.0-11.0) Red Blood Count 1.90 x10^6/uL (4.30-5.70) Hemoglobin 6.6 g/dL (13.0-17.5) Hematocrit 19.3 % (39.0-53.0) Mean Corpuscular Volume 102 fL (79-100) Mean Corpuscular Hemoglobin 35 pg (25-35) Mean Corpuscular Hemoglobin Concent 34 g/dL (31-37) Red Cell Distribution Width 15.1 % (11.5-14.5) Platelet Count 296 x10^3/uL (140-400) Neutrophils (%) (Auto) 69 % (31-73) Lymphocytes (%) (Auto) 22 % (24-48) Monocytes (%) (Auto) 8 % (0-9) Eosinophils (%) (Auto) 0 % (0-3) Basophils (%) (Auto) 0 % (0-3) Neutrophils # (Auto) 3.2 x10^3/uL (1.8-7.7) Lymphocytes # (Auto) 1.0 x10^3/uL (1.0-4.8) Monocytes # (Auto) 0.4 x10^3/uL (0.0-1.1) Eosinophils # (Auto) 0.0 x10^3/uL (0.0-0.7) Basophils # (Auto) 0.0 x10^3/uL (0.0-0.2) Sodium Level 141 mmol/L (136-145) Potassium Level 3.8 mmol/L (3.5-5.1) Chloride Level 107 mmol/L (98-107) Carbon Dioxide Level 28 mmol/L (21-32) Anion Gap 6 (6-14) Blood Urea Nitrogen 28 mg/dL (8-26) Creatinine 1.0 mg/dL (0.7-1.3) Estimated GFR (Cockcroft-Gault) 86.1 BUN/Creatinine Ratio 28 (6-20) Glucose Level 101 mg/dL (70-99) Calcium Level 11.3 mg/dL (8.5-10.1) Total Bilirubin 0.2 mg/dL (0.2-1.0) Aspartate Amino Transf (AST/SGOT) 16 U/L (15-37) Alanine Aminotransferase (ALT/SGPT) < 6 U/L (16-63) Alkaline Phosphatase 67 U/L (46-116) Ammonia 30 mcmol/L (11-34) Total Protein 9.0 g/dL (6.4-8.2) Albumin 1.4 g/dL (3.4-5.0) Albumin/Globulin Ratio 0.2 (1.0-1.7) Medications Current Medications Sodium Chloride 1,000 ml @ 100 mls/hr Q10H IV Last administered on 11/24/18at 11:21; Start 11/24/18 at 10:38; Stop 11/24/18 at 14:02; Status DC Amino Acids/ Glycerin/ Electrolytes 1,000 ml @ 75 mls/hr [id number] IV Last ad ministered on 11/25/18at 20:07; Start 11/24/18 at 14:00 Thiamine HCl 100 mg DAILY IM Last administered on 11/25/18at 09:06; Start 11/24/18 at 15:00; Stop 11/26/18 at 09:01; Status DC Multivitamins (Thera M Plus) 1 tab DAILY PO ; Start 11/24/18 at 15:00 Zoledronic Acid 100 ml @ 400 mls/hr 1X ONCE IV Last administered on 11/25/18at 10:15; Start 11/25/18 at 10:00; Stop 11/25/18 at 10:14; Status DC Lactulose (Lactulose) 15 gm BID PO Last administered on 11/25/18at 20:07; Start 11/25/18 at 21:00 Vitals/I & O Vital Sign - Last 24 Hours 11/25/18 11/25/18 11/25/18 11/25/18 15:00 19:10 20:00 23:45 Temp 98.3 98.2 97.4 98.3 98.2 97.4 Pulse 83 87 97 Resp 16 16 16 B/P (MAP) 173/77 (109) 142/61 (88) 124/70 (88) Pulse Ox 95 95 98 O2 Delivery Room Air Room Air Room Air Room Air 11/26/18 11/26/18 11/26/18 11/26/18 03:29 07:20 07:30 07:36 Temp 97.4 98.9 98.9 98.7 97.4 98.9 98.9 98.7 Pulse 81 75 75 75 Resp 16 16 16 16 B/P (MAP) 163/78 (106) 154/72 154/72 (99) 157/73 Pulse Ox 98 95 O2 Delivery Room Air Room Air 11/26/18 11/26/18 08:20 09:20 Temp 98.8 98.5 98.8 98.5 Pulse 71 72 Resp 18 18 B/P (MAP) 171/74 171/76 Intake and Output 11/25/18 11/25/18 11/26/18 14:59 22:59 06:59 Intake Total 100 ml 100 ml 150 ml Balance 100 ml 100 ml 150 ml Nutrition Consultation Dietary Evaluation: Recommendations by RD: Increase Calorie Intake, Protein supplementation, PPN/TPN Comments: REC continue PPN at this time REC diet per MAC ARTIST with appropriate supplements. Expected Outcomes/Goals: to meet > 75% est nutr needs via po intake Malnutrition Findings: Food and Nutrition Intake (Sev: <50% est energy req 5days Body Fat Depletion (Non Severe: Mild Depletion Weight Status: Underweight PEGGY MELENDEZ MD Nov 26, 2018 11:10
[2018-11-26] MEDS: LACTULOSE 20 GM/30 ML SOLUTION. PO SCH ×2 (12:14→21:26)
[2018-11-26] MEDS: THIAMINE IM 200 MG/2 ML VIAL. IM SCH (12:14)
[2018-11-26] MEDS: MULTIVITAMIN with MINERAL TABLET. PO SCH (12:14)
--- NOTE | 2018-11-26 12:15 | PDOC ---
PULMONARY PROGRESS NOTES Subjective remains lethargic Vitals Vital Signs Date Time Temp Pulse Resp B/P (MAP) Pulse Ox O2 Delivery O2 Flow Rate FiO2 11/26/18 11:00 98.6 74 18 161/66 (97) 96 Room Air 98.6 General: Lethargic Lungs: Other (decrease bs) Cardiovascular: S1 Abdomen: Soft Extremities: No Edema Skin: Warm Labs Laboratory Tests Test 11/25/18 03:40 11/25/18 03:45 11/26/18 03:25 Ammonia 49 mcmol/L (11-34) 30 mcmol/L (11-34) Erythrocyte Sedimentation Rate > 130 (0-15) Vitamin B12 Level 334 pg/mL (247-911) White Blood Count 4.7 x10^3/uL (4.0-11.0) Red Blood Count 1.90 x10^6/uL (4.30-5.70) Hemoglobin 6.6 g/dL (13.0-17.5) Hematocrit 19.3 % (39.0-53.0) Mean Corpuscular Volume 102 fL (79-100) Mean Corpuscular Hemoglobin 35 pg (25-35) Mean Corpuscular Hemoglobin Concent 34 g/dL (31-37) Red Cell Distribution Width 15.1 % (11.5-14.5) Platelet Count 296 x10^3/uL (140-400) Neutrophils (%) (Auto) 69 % (31-73) Lymphocytes (%) (Auto) 22 % (24-48) Monocytes (%) (Auto) 8 % (0-9) Eosinophils (%) (Auto) 0 % (0-3) Basophils (%) (Auto) 0 % (0-3) Neutrophils # (Auto) 3.2 x10^3/uL (1.8-7.7) Lymphocytes # (Auto) 1.0 x10^3/uL (1.0-4.8) Monocytes # (Auto) 0.4 x10^3/uL (0.0-1.1) Eosinophils # (Auto) 0.0 x10^3/uL (0.0-0.7) Basophils # (Auto) 0.0 x10^3/uL (0.0-0.2) Sodium Level 141 mmol/L (136-145) Potassium Level 3.8 mmol/L (3.5-5.1) Chloride Level 107 mmol/L (98-107) Carbon Dioxide Level 28 mmol/L (21-32) Anion Gap 6 (6-14) Blood Urea Nitrogen 28 mg/dL (8-26) Creatinine 1.0 mg/dL (0.7-1.3) Estimated GFR (Cockcroft-Gault) 86.1 BUN/Creatinine Ratio 28 (6-20) Glucose Level 101 mg/dL (70-99) Calcium Level 11.3 mg/dL (8.5-10.1) Total Bilirubin 0.2 mg/dL (0.2-1.0) Aspartate Amino Transf (AST/SGOT) 16 U/L (15-37) Alanine Aminotransferase (ALT/SGPT) < 6 U/L (16-63) Alkaline Phosphatase 67 U/L (46-116) Total Protein 9.0 g/dL (6.4-8.2) Albumin 1.4 g/dL (3.4-5.0) Albumin/Globulin Ratio 0.2 (1.0-1.7) Laboratory Tests Test 11/26/18 03:25 White Blood Count 4.7 x10^3/uL (4.0-11.0) Red Blood Count 1.90 x10^6/uL (4.30-5.70) Hemoglobin 6.6 g/dL (13.0-17.5) Hematocrit 19.3 % (39.0-53.0) Mean Corpuscular Volume 102 fL (79-100) Mean Corpuscular Hemoglobin 35 pg (25-35) Mean Corpuscular Hemoglobin Concent 34 g/dL (31-37) Red Cell Distribution Width 15.1 % (11.5-14.5) Platelet Count 296 x10^3/uL (140-400) Neutrophils (%) (Auto) 69 % (31-73) Lymphocytes (%) (Auto) 22 % (24-48) Monocytes (%) (Auto) 8 % (0-9) Eosinophils (%) (Auto) 0 % (0-3) Basophils (%) (Auto) 0 % (0-3) Neutrophils # (Auto) 3.2 x10^3/uL (1.8-7.7) Lymphocytes # (Auto) 1.0 x10^3/uL (1.0-4.8) Monocytes # (Auto) 0.4 x10^3/uL (0.0-1.1) Eosinophils # (Auto) 0.0 x10^3/uL (0.0-0.7) Basophils # (Auto) 0.0 x10^3/uL (0.0-0.2) Sodium Level 141 mmol/L (136-145) Potassium Level 3.8 mmol/L (3.5-5.1) Chloride Level 107 mmol/L (98-107) Carbon Dioxide Level 28 mmol/L (21-32) Anion Gap 6 (6-14) Blood Urea Nitrogen 28 mg/dL (8-26) Creatinine 1.0 mg/dL (0.7-1.3) Estimated GFR (Cockcroft-Gault) 86.1 BUN/Creatinine Ratio 28 (6-20) Glucose Level 101 mg/dL (70-99) Calcium Level 11.3 mg/dL (8.5-10.1) Total Bilirubin 0.2 mg/dL (0.2-1.0) Aspartate Amino Transf (AST/SGOT) 16 U/L (15-37) Alanine Aminotransferase (ALT/SGPT) < 6 U/L (16-63) Alkaline Phosphatase 67 U/L (46-116) Ammonia 30 mcmol/L (11-34) Total Protein 9.0 g/dL (6.4-8.2) Albumin 1.4 g/dL (3.4-5.0) Albumin/Globulin Ratio 0.2 (1.0-1.7) Impression . 1. Unexplained weight loss and loss of appetite along with declining mental function. likely underlying malignancy. No significant tobacco history. 2. No significant tobacco history. 3. encephalopathy 4. Severe protein-calorie malnutrition. 5. Hypercalcemia of malignancy 6. Abnormal ct chest with multiple right rib destructive lesions and small RUL cavitary lesion. suspect lung malignancy, ? metastatic, ? MM Plan . 1. d/w family. right rib biopsy for definite dx vs blodd w/u for MM per oncology 2. Follow oncology rec 3. Treatment of hypercalcemia per PCP. 4. Discussed with RN d/w and daughter. poor functional status.rec palliative care. They agree. Pat to meet family later today CONNIE WHITMORE MD Nov 26, 2018 12:15
--- NOTE | 2018-11-26 13:31 | PDOC ---
Provider Note Provider Note IR NOTE Idea of bone lesion biopsy revisited. Patients family unsure if they wish to pursue further dx testing. Meeting with palliative care pending, possibly later today. Will be available as needed. KI SUTHERLAND MD Nov 26, 2018 13:31
--- NOTE | 2018-11-26 13:36 | PDOC ---
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 Also note anemia, hypercalcemia, abnormal thyroid studies, elevated sedimentation rate, elevated ammonia level. MRI results reviewed below Lytic lesions, throughout body Plan Palliative care meeting pending Rehabilitation modalities Thiamine Treat medical issues, oncology following Objective Vital Signs Date Time Temp Pulse Resp B/P (MAP) Pulse Ox O2 Delivery O2 Flow Rate FiO2 11/26/18 11:20 98.5 74 18 148/70 98.5 11/26/18 11:00 96 Room Air Intake and Output 11/26/18 06:59 Intake Total 350 ml Balance 350 ml Intake Oral 350 ml # Voids 5 # Bowel Movements 1 PHYSICAL EXAM Alert. Oriented only to person. PERRL. EOMI. CN: no focal findings. Muscle tone: normal. Muscle strength: 4/5 DTR: 2+ Plantar reflex: flexor Gait: not examined in bed. Sensory exam: no abnormal findings. No cerebellar signs elicited. Review of Relevant I have reviewed the following items reyna (where applicable) has been applied. Labs Laboratory Tests Test 11/25/18 03:40 11/25/18 03:45 11/26/18 03:25 Ammonia 49 mcmol/L (11-34) 30 mcmol/L (11-34) Erythrocyte Sedimentation Rate > 130 (0-15) Vitamin B12 Level 334 pg/mL (247-911) White Blood Count 4.7 x10^3/uL (4.0-11.0) Red Blood Count 1.90 x10^6/uL (4.30-5.70) Hemoglobin 6.6 g/dL (13.0-17.5) Hematocrit 19.3 % (39.0-53.0) Mean Corpuscular Volume 102 fL (79-100) Mean Corpuscular Hemoglobin 35 pg (25-35) Mean Corpuscular Hemoglobin Concent 34 g/dL (31-37) Red Cell Distribution Width 15.1 % (11.5-14.5) Platelet Count 296 x10^3/uL (140-400) Neutrophils (%) (Auto) 69 % (31-73) Lymphocytes (%) (Auto) 22 % (24-48) Monocytes (%) (Auto) 8 % (0-9) Eosinophils (%) (Auto) 0 % (0-3) Basophils (%) (Auto) 0 % (0-3) Neutrophils # (Auto) 3.2 x10^3/uL (1.8-7.7) Lymphocytes # (Auto) 1.0 x10^3/uL (1.0-4.8) Monocytes # (Auto) 0.4 x10^3/uL (0.0-1.1) Eosinophils # (Auto) 0.0 x10^3/uL (0.0-0.7) Basophils # (Auto) 0.0 x10^3/uL (0.0-0.2) Sodium Level 141 mmol/L (136-145) Potassium Level 3.8 mmol/L (3.5-5.1) Chloride Level 107 mmol/L (98-107) Carbon Dioxide Level 28 mmol/L (21-32) Anion Gap 6 (6-14) Blood Urea Nitrogen 28 mg/dL (8-26) Creatinine 1.0 mg/dL (0.7-1.3) Estimated GFR (Cockcroft-Gault) 86.1 BUN/Creatinine Ratio 28 (6-20) Glucose Level 101 mg/dL (70-99) Calcium Level 11.3 mg/dL (8.5-10.1) Total Bilirubin 0.2 mg/dL (0.2-1.0) Aspartate Amino Transf (AST/SGOT) 16 U/L (15-37) Alanine Aminotransferase (ALT/SGPT) < 6 U/L (16-63) Alkaline Phosphatase 67 U/L (46-116) Total Protein 9.0 g/dL (6.4-8.2) Albumin 1.4 g/dL (3.4-5.0) Albumin/Globulin Ratio 0.2 (1.0-1.7) Laboratory Tests Test 11/26/18 03:25 White Blood Count 4.7 x10^3/uL (4.0-11.0) Red Blood Count 1.90 x10^6/uL (4.30-5.70) Hemoglobin 6.6 g/dL (13.0-17.5) Hematocrit 19.3 % (39.0-53.0) Mean Corpuscular Volume 102 fL (79-100) Mean Corpuscular Hemoglobin 35 pg (25-35) Mean Corpuscular Hemoglobin Concent 34 g/dL (31-37) Red Cell Distribution Width 15.1 % (11.5-14.5) Platelet Count 296 x10^3/uL (140-400) Neutrophils (%) (Auto) 69 % (31-73) Lymphocytes (%) (Auto) 22 % (24-48) Monocytes (%) (Auto) 8 % (0-9) Eosinophils (%) (Auto) 0 % (0-3) Basophils (%) (Auto) 0 % (0-3) Neutrophils # (Auto) 3.2 x10^3/uL (1.8-7.7) Lymphocytes # (Auto) 1.0 x10^3/uL (1.0-4.8) Monocytes # (Auto) 0.4 x10^3/uL (0.0-1.1) Eosinophils # (Auto) 0.0 x10^3/uL (0.0-0.7) Basophils # (Auto) 0.0 x10^3/uL (0.0-0.2) Sodium Level 141 mmol/L (136-145) Potassium Level 3.8 mmol/L (3.5-5.1) Chloride Level 107 mmol/L (98-107) Carbon Dioxide Level 28 mmol/L (21-32) Anion Gap 6 (6-14) Blood Urea Nitrogen 28 mg/dL (8-26) Creatinine 1.0 mg/dL (0.7-1.3) Estimated GFR (Cockcroft-Gault) 86.1 BUN/Creatinine Ratio 28 (6-20) Glucose Level 101 mg/dL (70-99) Calcium Level 11.3 mg/dL (8.5-10.1) Total Bilirubin 0.2 mg/dL (0.2-1.0) Aspartate Amino Transf (AST/SGOT) 16 U/L (15-37) Alanine Aminotransferase (ALT/SGPT) < 6 U/L (16-63) Alkaline Phosphatase 67 U/L (46-116) Ammonia 30 mcmol/L (11-34) Total Protein 9.0 g/dL (6.4-8.2) Albumin 1.4 g/dL (3.4-5.0) Albumin/Globulin Ratio 0.2 (1.0-1.7) Medications Current Medications Sodium Chloride 1,000 ml @ 100 mls/hr Q10H IV Last administered on 11/24/18at 11:21; Start 11/24/18 at 10:38; Stop 11/24/18 at 14:02; Status DC Amino Acids/ Glycerin/ Electrolytes 1,000 ml @ 75 mls/hr [id number] IV Last administered on 11/25/18at 20:07; Start 11/24/18 at 14:00 Thiamine HCl 100 mg DAILY IM Last administered on 11/26/18at 12:14; Start 11/24/18 at 15:00; Stop 11/26/18 at 09:01; Status DC Multivitamins (Thera M Plus) 1 tab DAILY PO Last administered on 11/26/18at 12:14; Start 11/24/18 at 15:00 Zoledronic Acid 100 ml @ 400 mls/hr 1X ONCE IV Last administered on 11/25/18at 10:15; Start 11/25/18 at 10:00; Stop 11/25/18 at 10:14; Status DC Lactulose (Lactulose) 15 gm BID PO Last administered on 11/26/18at 12:14; Start 11/25/18 at 21:00 Vitals/I & O Vital Sign - Last 24 Hours 11/25/18 11/25/18 11/25/18 11/25/18 15:00 19:10 20:00 23:45 Temp 98.3 98.2 97.4 98.3 98.2 97.4 Pulse 83 87 97 Resp 16 16 16 B/P (MAP) 173/77 (109) 142/61 (88) 124/70 (88) Pulse Ox 95 95 98 O2 Delivery Room Air Room Air Room Air Room Air 11/26/18 11/26/18 11/26/18 11/26/18 03:29 07:20 07:30 07:36 Temp 97.4 98.9 98.9 98.7 97.4 98.9 98.9 98.7 Pulse 81 75 75 75 Resp 16 16 16 16 B/P (MAP) 163/78 (106) 154/72 154/72 (99) 157/73 Pulse Ox 98 95 O2 Delivery Room Air Room Air 11/26/18 11/26/18 11/26/18 11/26/18 08:20 09:20 10:20 11:00 Temp 98.8 98.5 98.5 98.6 98.8 98.5 98.5 98.6 Pulse 71 72 76 74 Resp 18 18 18 18 B/P (MAP) 171/74 171/76 161/66 161/66 (97) Pulse Ox 96 O2 Delivery Room Air 11/26/18 11:20 Temp 98.5 98.5 Pulse 74 Resp 18 B/P (MAP) 148/70 Intake and Output 11/25/18 11/25/18 11/26/18 14:59 22:59 06:59 Intake Total 100 ml 100 ml 150 ml Balance 100 ml 100 ml 150 ml Images MRI Brain without contrast History: Altered mental status Technique: Multiplanar, multisequential noncontrast MR imaging was performed of the brain. Comparison: CT head the same day Findings: There is some motion degradation. There is no restricted diffusion suggestive of recent infarct. There is no intra-axial mass effect or midline shift. There is mild lateral ventriculomegaly likely due to mild supratentorial atrophy. There is scattered overall mild T2 and FLAIR hyperintense signal abnormality of the supratentorial parenchyma bilaterally greatest of the frontal lobes. There is no significant hemosiderin deposition of the right,. There is preservation of the major arterial flow voids at the skull base. There is patchy minimal ethmoid air cell mucosal thickening. There is relative decreased T1 signal of the more posterior central clivus there is also decreased T1 signal of the visualized cervical marrow and also of the mandibular condyles greater on the left. Impression: 1. There is no evidence of recent infarct or intracranial mass effect. Overall mild T2 and FLAIR hyperintense abnormality of the supratentorial parenchyma bilaterally is nonspecific, more commonly due to chronic microvascular ischemic disease in a patient this age. There is mild supratentorial atrophy. 2. There is abnormal decreased T1 signal of the marrow of the clivus, visualized cervical marrow, and also of the mandibular condyles greater on the left concerning for underlying marrow replacing process/marrow disorder. LUCIANA CANTRELL MD Nov 26, 2018 13:36
[2018-11-26 14:11] LABS: KAPPA FREE 1442.6 mg/L (3.3-19.4); KAPPA LAMBDA RATIO 189.82 (0.26-1.65); LAMBDA FREE 7.6 mg/L (5.7-26.3)
--- NOTE | 2018-11-26 15:30 | PDOC2 ---
PALLIATIVE CARE Palliative Care Note Palliative Care Consult requested by Dr. Hidalgo to address goals of care Medical Assessment per medical record; Assessment and Plan: He is an 83-year-old man with remote history of prostate cancer and suspected new diagnosis of multiple myeloma based on hypercalcemia, hypoproteinemia, lytic lesions, anemia, and altered mental status suspect in large part due to hypercalcemia also with some slightly elevated ammonia. Patient more alert today but remain confused. Met with Kusum, daughter Stacy, Elier and Nicolle by phone, Son Rene, Aleksandra friend and grandson Sundar. Reviewed above medical condition. Patient lives by himself. 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 He has never shared his wishes for end of life care. No AD. He does not follow-up with physician outside the hospital. Nisha; not a part of his life. Family shared that knowing his medical condition, he likely would be saying not to do anymore work-up and allow him to peacefully. Kusum would like patient to come to her house. Discussed the option of Hospice Support. They were given brochures on several hospice agency. They will check with other family members familiar with hospice agency as well. Discussed Code Status; Family requests DNR/DNI. Understand without this att empt he likely would . Kusum home address; [address] [place] [address]. Stacy/sheree phone; [phone]. Plan to finalize selection of Hospice Agency with assistance from Kamini DELGADO. Home tomorrow afternoon. DME: Hospital bed with rails. BSC, Bedside table. Plan; Home with Hospice. DNR/DNI. PRABHAKAR SALAZAR Nov 26, 2018 15:30
--- NOTE | 2018-11-26 15:53 | NUR ---
SW following pt for dc planning. Chart reviewed and discussed with PC. Spoke with family, they had chosed [facility]. SW phoned and faxed referral to hospice. Anticipate dc home tomorrow with hospice.
[2018-11-26] MEDS: AMINO AC 3%/ELECTROLYTE/GLYCER 1,000 ML IV SCH (19:30)
[2018-11-27 03:40] VITALS: BP 141/69
[2018-11-27 07:00] VITALS: BP 175/64
[2018-11-27 07:15] LABS: HEMATOCRIT 26.9 % (39.0-53.0); HEMOGLOBIN 9.3 g/dL (13.0-17.5); RED BLOOD COUNT 2.85 x10^6/uL (4.30-5.70); RED CELL DISTRIBUTION WIDTH 18.6 % (11.5-14.5); WHITE BLOOD COUNT 4.9 x10^3/uL (4.0-11.0)
--- NOTE | 2018-11-27 07:47 | PDOC ---
PROGRESS NOTES History of Present Illness History of Present Illness DISCHARGE DX : Mental status change, METABOLIC ENCEPHALOPATHY, ACUTE weight loss, mri head 11/24 chronic microvascular ischemic disease in a patient this age. mild supratentorial atrophy. abnormal decreased T1 signal of the marrow of the clivus, visualized cervical marrow, and also of the mandibular condyles greater on the left concerning for underlying marrow replacing process/marrow disorder. on ct chest Patchy opacity measuring 1.5 cm seen in the right upper lobe with pleural retraction. Consolidation is seen in the bilateral posterior lung bases. Otherwise, lungs are clear. 4.3 x 2.2 cm lesion is seen centered on the anterior right fifth rib with soft tissue component. Another lytic lesion is seen centered on the posterior eighth rib with rib destruction measuring approximately 3.6 x 1.8 cm. Numerous lucencies seen in the ribs, spine and sternum. 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 history of prostate cancer with no followup.,possible metastatic prostate cancer, elevated serum ammonia hypertension check a PSA and bone scan. Consult Oncology, consult Urology, consult Neurology consult Pulmonary Medicine IV procalamine, daily labs, PT/OT, Zometa lactulose 15cc po bid d/w and daughter. poor functional status.rec palliative care. PROCEED WITH HOSPICE INTAKE 32 min pt exam, chart review, > 50% of time spent with exam, chart review, pt care coordination Vitals Vitals Vital Signs Date Time Temp Pulse Resp B/P (MAP) Pulse Ox O2 Delivery O2 Flow Rate FiO2 11/27/18 03:40 99.5 84 18 141/69 (93) 94 Room Air 99.5 Physical Exam Physical Exam GENERAL: Cachectic. HEENT: Head is normocephalic, atraumatic, pupils were equally round and reactive to light and accommodation. NECK: Supple, no JVD, no thyromegaly was noted. LUNGS: Clear to auscultation in all lung haddad without rhonchi or wheezing. HEART: RRR, S1, S2 present. Peripheral pulses intact, no obvious murmurs were noted. ABDOMEN: Soft, nontender. Positive bowel sounds no organomegaly, normal bowel sounds. EXTREMITIES: Without any cyanosis, clubbing, or edema. Pedal pulses intact, Homans sign is negative. NEUROLOGIC: He will not talk to me. PSYCHIATRIC: Normal affect, normal mood. Stable. SKIN: No ulcerations or rashes, good skin turgor, no jaundice. VASCULAR: Good capillary refill, neurovascular bundle appears to be intact. General: Cooperative, No acute distress Lungs: Clear, Other (decrease bs) Abdomen: Soft Extremities: No cyanosis Skin: No rashes Labs LABS Laboratory Tests Test 11/27/18 06:55 White Blood Count 4.9 x10^3/uL (4.0-11.0) Red Blood Count 2.85 x10^6/uL (4.30-5.70) Hemoglobin 9.3 g/dL (13.0-17.5) Hematocrit 26.9 % (39.0-53.0) Mean Corpuscular Volume 94 fL (79-100) Mean Corpuscular Hemoglobin 33 pg (25-35) Mean Corpuscular Hemoglobin Concent 35 g/dL (31-37) Red Cell Distribution Width 18.6 % (11.5-14.5) Platelet Count 275 x10^3/uL (140-400) Assessment and Plan Assessmemt and Plan Problems Medical Problems: (1) Altered mental status Status: Acute (2) Anemia Status: Acute (3) Hypercalcemia Status: Acute (4) Weakness Status: Acute Comment Review of Relevant I have reviewed the following items reyna (where applicable) has been applied. Labs Laboratory Tests Test 11/25/18 10:17 11/26/18 03:25 11/27/18 06:55 Immunoglobulin [place]/Lambda Ratio 189.82 (0.26-1.65) Free [place] Light Chains 1442.6 mg/L (3.3-19.4) Free [place] Light Chains 7.6 mg/L (5.7-26.3) White Blood Count 4.7 x10^3/uL (4.0-11.0) 4.9 x10^3/uL (4.0-11.0) Red Blood Count 1.90 x10^6/uL (4.30-5.70) 2.85 x10^6/uL (4.30-5.70) Hemoglobin 6.6 g/dL (13.0-17.5) 9.3 g/dL (13.0-17.5) Hematocrit 19.3 % (39.0-53.0) 26.9 % (39.0-53.0) Mean Corpuscular Volume 102 fL (79-100) 94 fL (79-100) Mean Corpuscular Hemoglobin 35 pg (25-35) 33 pg (25-35) Mean Corpuscular Hemoglobin Concent 34 g/dL (31-37) 35 g/dL (31-37) Red Cell Distribution Width 15.1 % (11.5-14.5) 18.6 % (11.5-14.5) Platelet Count 296 x10^3/uL (140-400) 275 x10^3/uL (140-400) Neutrophils (%) (Auto) 69 % (31-73) Lymphocytes (%) (Auto) 22 % (24-48) Monocytes (%) (Auto) 8 % (0-9) Eosinophils (%) (Auto) 0 % (0-3) Basophils (%) (Auto) 0 % (0-3) Neutrophils # (Auto) 3.2 x10^3/uL (1.8-7.7) Lymphocytes # (Auto) 1.0 x10^3/uL (1.0-4.8) Monocytes # (Auto) 0.4 x10^3/uL (0.0-1.1) Eosinophils # (Auto) 0.0 x10^3/uL (0.0-0.7) Basophils # (Auto) 0.0 x10^3/uL (0.0-0.2) Sodium Level 141 mmol/L (136-145) Potassium Level 3.8 mmol/L (3.5-5.1) Chloride Level 107 mmol/L (98-107) Carbon Dioxide Level 28 mmol/L (21-32) Anion Gap 6 (6-14) Blood Urea Nitrogen 28 mg/dL (8-26) Creatinine 1.0 mg/dL (0.7-1.3) Estimated GFR (Cockcroft-Gault) 86.1 BUN/Creatinine Ratio 28 (6-20) Glucose Level 101 mg/dL (70-99) Calcium Level 11.3 mg/dL (8.5-10.1) Total Bilirubin 0.2 mg/dL (0.2-1.0) Aspartate Amino Transf (AST/SGOT) 16 U/L (15-37) Alanine Aminotransferase (ALT/SGPT) < 6 U/L (16-63) Alkaline Phosphatase 67 U/L (46-116) Ammonia 30 mcmol/L (11-34) Total Protein 9.0 g/dL (6.4-8.2) Albumin 1.4 g/dL (3.4-5.0) Albumin/Globulin Ratio 0.2 (1.0-1.7) Laboratory Tests Test 11/27/18 06:55 White Blood Count 4.9 x10^3/uL (4.0-11.0) Red Blood Count 2.85 x10^6/uL (4.30-5.70) Hemoglobin 9.3 g/dL (13.0-17.5) Hematocrit 26.9 % (39.0-53.0) Mean Corpuscular Volume 94 fL (79-100) Mean Corpuscular Hemoglobin 33 pg (25-35) Mean Corpuscular Hemoglobin Concent 35 g/dL (31-37) Red Cell Distribution Width 18.6 % (11.5-14.5) Platelet Count 275 x10^3/uL (140-400) Medications Current Medications Sodium Chloride 1,000 ml @ 100 mls/hr Q10H IV Last administered on 11/24/18at 11:21; Start 11/24/18 at 10:38; Stop 11/24/18 at 14:02; Status DC Amino Acids/ Glycerin/ Electrolytes 1,000 ml @ 75 mls/hr [id number] IV Last administered on 11/26/18at 19:30; Start 11/24/18 at 14:00 Thiamine HCl 100 mg DAILY IM Last administered on 11/26/18at 12:14; Start 11/24/18 at 15:00; Stop 11/26/18 at 09:01; Status DC Multivitamins (Thera M Plus) 1 tab DAILY PO Last administered on 11/26/18at 12:14; Start 11/24/18 at 15:00 Zoledronic Acid 100 ml @ 400 mls/hr 1X ONCE IV Last administered on 11/25/18at 10:15; Start 11/25/18 at 10:00; Stop 11/25/18 at 10:14; Status DC Lactulose (Lactulose) 15 gm BID PO Last administered on 11/26/18at 21:27; Start 11/25/18 at 21:00 Vitals/I & O Vital Sign - Last 24 Hours 11/26/18 11/26/18 11/26/18 11/26/18 08:00 08:20 09:20 10:20 Temp 98.8 98.5 98.5 98.8 98.5 98.5 Pulse 71 72 76 Resp 18 18 18 B/P (MAP) 171/74 171/76 161/66 O2 Delivery Room Air 11/26/18 11/26/18 11/26/18 11/26/18 11:00 11:20 14:15 14:35 Temp 98.6 98.5 97.9 98.0 98.6 98.5 97.9 98.0 Pulse 74 74 74 82 Resp 18 18 18 18 B/P (MAP) 161/66 (97) 148/70 156/79 147/65 Pulse Ox 96 O2 Delivery Room Air 11/26/18 11/26/18 11/26/18 11/26/18 15:00 15:20 19:30 19:40 Temp 98.2 98.3 98.9 98.2 98.3 98.9 Pulse 83 77 78 Resp 20 18 B/P (MAP) 157/68 (97) 167/74 163/70 (101) Pulse Ox 95 95 O2 Delivery Room Air Room Air Room Air 11/26/18 11/27/18 23:40 03:40 Temp 99.2 99.5 99.2 99.5 Pulse 81 84 Resp 18 18 B/P (MAP) 151/68 (95) 141/69 (93) Pulse Ox 97 94 O2 Delivery Room Air Room Air Intake and Output 11/26/18 11/26/18 11/27/18 15:00 23:00 07:00 Intake Total 1000 ml 250 ml Output Total 100 ml Balance 1000 ml 150 ml Nutrition Consultation Dietary Evaluation: Recommendations by RD: Increase Calorie Intake, Protein supplementation, PPN/TPN Comments: REC continue PPN at this time REC diet per MEAT STOCK CLERK with appropriate supplements. Expected Outcomes/Goals: to meet > 75% est nutr needs via po intake Malnutrition Findings: Food and Nutrition Intake (Sev: <50% est energy req 5days Body Fat Depletion (Non Severe: Mild Depletion Weight Status: Underweight PEGGY MELENDEZ MD Nov 27, 2018 07:47
[2018-11-27] MEDS: AMINO AC 3%/ELECTROLYTE/GLYCER 1,000 ML IV SCH (08:08)
[2018-11-27] MEDS: MULTIVITAMIN with MINERAL TABLET. PO SCH (08:08)
[2018-11-27] MEDS: LACTULOSE 20 GM/30 ML SOLUTION. PO SCH (08:09)
--- NOTE | 2018-11-27 09:44 | PDOC ---
SUBJECTIVE Subjective S: slight improvement in mental status but still quite frail and not talking much O: Physical exam: Gen.: thin, resting in bed Lungs: Breathing comfortably, no resp distress Labs: White count 4.9, hemoglobin 9.3, platelets 275 [place] chains 1442, lambda 7.2, with a ratio of 189 Rads: bone scan diff + Assessment and Plan: He is an 83-year-old man with remote history of prostate cancer and new diagnosis of multiple myeloma based on hypercalcemia, hypoproteinemia, lytic lesions, anemia, elev K chains w/ ratio >100, and altered mental status related to hypercalcemia improved post zometa also with some slightly elevated ammonia improved on lactulose Hypercalcemia: s/p Zometa �1 dose 11 Sep multiple myeloma: too frail for chemo, going home on hospice Elevated ammonia: on lactulose Anemia: due to myeloma, no need for transfusion at the moment History of prostate cancer: Appears to be remote, PSA is negative for recurrence History of alcohol: On multivitamin and thiamine Disposition: home w/ hospice Thank you kindly and please don't hesitate to call w/ questions. Thank you kindly and please do not hesitate to call with questions. OBJECTIVE Vital Signs Vital Signs Date Time Temp Pulse Resp B/P (MAP) Pulse Ox O2 Delivery O2 Flow Rate FiO2 11/27/18 07:00 98.9 74 16 175/64 (101) 97 Room Air 98.9 11/27/18 03:40 99.5 84 18 141/69 (93) 94 Room Air 99.5 11/26/18 23:40 99.2 81 18 151/68 (95) 97 Room Air 99.2 11/26/18 19:40 98.9 78 18 163/70 (101) 95 Room Air 98.9 11/26/18 19:30 Room Air 11/26/18 15:20 98.3 77 20 167/74 98.3 11/26/18 15:00 98.2 83 16 157/68 (97) 95 Room Air 98.2 11/26/18 14:35 98.0 82 18 147/65 98.0 11/26/18 14:15 97.9 74 18 156/79 97.9 11/26/18 11:20 98.5 74 18 148/70 98.5 11/26/18 11:00 98.6 74 18 161/66 (97) 96 Room Air 98.6 11/26/18 10:20 98.5 76 18 161/66 98.5 I & O Intake and Output 11/27/18 06:59 Intake Total 1250 ml Output Total 100 ml Balance 1150 ml Intake Oral 250 ml IV Total 1000 ml Output Urine Total 100 ml # Voids 4 # Bowel Movements 1 COMMENT Lab Laboratory Tests Test 11/27/18 06:55 White Blood Count 4.9 x10^3/uL (4.0-11.0) Red Blood Count 2.85 x10^6/uL (4.30-5.70) Hemoglobin 9.3 g/dL (13.0-17.5) Hematocrit 26.9 % (39.0-53.0) Mean Corpuscular Volume 94 fL (79-100) Mean Corpuscular Hemoglobin 33 pg (25-35) Mean Corpuscular Hemoglobin Concent 35 g/dL (31-37) Red Cell Distribution Width 18.6 % (11.5-14.5) Platelet Count 275 x10^3/uL (140-400) Nutrition Consultation Dietary Evaluation: Recommendations by RD: Increase Calorie Intake, Protein supplementation, PPN/TPN Comments: REC continue PPN at this time REC diet per INVESTMENT CONSULTANT with appropriate supplements. Expected Outcomes/Goals: to meet > 75% est nutr needs via po intake Malnutrition Findings: Food and Nutrition Intake (Sev: <50% est energy req 5days Body Fat Depletion (Non Severe: Mild Depletion Weight Status: Underweight OMAR BLANCO MD Nov 27, 2018 09:44
--- NOTE | 2018-11-27 09:47 | PDOC ---
PULMONARY PROGRESS NOTES Subjective remains lethargic Vitals Vital Signs Date Time Temp Pulse Resp B/P (MAP) Pulse Ox O2 Delivery O2 Flow Rate FiO2 11/27/18 07:00 98.9 74 16 175/64 (101) 97 Room Air 98.9 General: Lethargic Lungs: Other (decrease bs) Cardiovascular: S1 Abdomen: Soft Extremities: No Edema Skin: Warm Labs Laboratory Tests Test 11/25/18 10:17 11/26/18 03:25 11/27/18 06:55 Immunoglobulin [place]/Lambda Ratio 189.82 (0.26-1.65) Free [place] Light Chains 1442.6 mg/L (3.3-19.4) Free [place] Light Chains 7.6 mg/L (5.7-26.3) White Blood Count 4.7 x10^3/uL (4.0-11.0) 4.9 x10^3/uL (4.0-11.0) Red Blood Count 1.90 x10^6/uL (4.30-5.70) 2.85 x10^6/uL (4.30-5.70) Hemoglobin 6.6 g/dL (13.0-17.5) 9.3 g/dL (13.0-17.5) Hematocrit 19.3 % (39.0-53.0) 26.9 % (39.0-53.0) Mean Corpuscular Volume 102 fL (79-100) 94 fL (79-100) Mean Corpuscular Hemoglobin 35 pg (25-35) 33 pg (25-35) Mean Corpuscular Hemoglobin Concent 34 g/dL (31-37) 35 g/dL (31-37) Red Cell Distribution Width 15.1 % (11.5-14.5) 18.6 % (11.5-14.5) Platelet Count 296 x10^3/uL (140-400) 275 x10^3/uL (140-400) Neutrophils (%) (Auto) 69 % (31-73) Lymphocytes (%) (Auto) 22 % (24-48) Monocytes (%) (Auto) 8 % (0-9) Eosinophils (%) (Auto) 0 % (0-3) Basophils (%) (Auto) 0 % (0-3) Neutrophils # (Auto) 3.2 x10^3/uL (1.8-7.7) Lymphocytes # (Auto) 1.0 x10^3/uL (1.0-4.8) Monocytes # (Auto) 0.4 x10^3/uL (0.0-1.1) Eosinophils # (Auto) 0.0 x10^3/uL (0.0-0.7) Basophils # (Auto) 0.0 x10^3/uL (0.0-0.2) Sodium Level 141 mmol/L (136-145) Potassium Level 3.8 mmol/L (3.5-5.1) Chloride Level 107 mmol/L (98-107) Carbon Dioxide Level 28 mmol/L (21-32) Anion Gap 6 (6-14) Blood Urea Nitrogen 28 mg/dL (8-26) Creatinine 1.0 mg/dL (0.7-1.3) Estimated GFR (Cockcroft-Gault) 86.1 BUN/Creatinine Ratio 28 (6-20) Glucose Level 101 mg/dL (70-99) Calcium Level 11.3 mg/dL (8.5-10.1) Total Bilirubin 0.2 mg/dL (0.2-1.0) Aspartate Amino Transf (AST/SGOT) 16 U/L (15-37) Alanine Aminotransferase (ALT/SGPT) < 6 U/L (16-63) Alkaline Phosphatase 67 U/L (46-116) Ammonia 30 mcmol/L (11-34) Total Protein 9.0 g/dL (6.4-8.2) Albumin 1.4 g/dL (3.4-5.0) Albumin/Globulin Ratio 0.2 (1.0-1.7) Laboratory Tests Test 11/27/18 06:55 White Blood Count 4.9 x10^3/uL (4.0-11.0) Red Blood Count 2.85 x10^6/uL (4.30-5.70) Hemoglobin 9.3 g/dL (13.0-17.5) Hematocrit 26.9 % (39.0-53.0) Mean Corpuscular Volume 94 fL (79-100) Mean Corpuscular Hemoglobin 33 pg (25-35) Mean Corpuscular Hemoglobin Concent 35 g/dL (31-37) Red Cell Distribution Width 18.6 % (11.5-14.5) Platelet Count 275 x10^3/uL (140-400) Impression . 1. Unexplained weight loss and loss of appetite along with declining mental function. likely underlying malignancy. No significant tobacco history. 2. No significant tobacco history. 3. encephalopathy 4. Severe protein-calorie malnutrition. 5. Hypercalcemia of malignancy 6. Abnormal ct chest with multiple right rib destructive lesions and small RUL cavitary lesion. ? lung malignancy, ? metastatic, ? MM Plan . 1. d/w family. right rib biopsy with held per family 2. Follow oncology rec 3. Treatment of hypercalcemia per PCP. 4. Discussed with RN d/w and daughter. poor functional status.rec palliative care. family wants to proceed with comfort care will see CONNIE Bernal MD Nov 27, 2018 09:47
--- NOTE | 2018-11-27 10:04 | NUR ---
DANNY following pt. Spoke with Giselle at [facility], she will be contacting pt's daughter, Stacy to schedule a bedside visit for 1200. She will also be ordering DME. Will continue to follow.
--- NOTE | 2018-11-27 10:19 | PDOC ---
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 Also note anemia, hypercalcemia, abnormal thyroid studies, elevated sedimentation rate, elevated ammonia level. MRI results reviewed below Lytic lesions, throughout body Note decision to pursue hospice Plan Hospice Thiamine finished, multivitamin should be sufficient Neurology signs off Subjective No complaints Objective Vital Signs Date Time Temp Pulse Resp B/P (MAP) Pulse Ox O2 Delivery O2 Flow Rate FiO2 11/27/18 07:00 98.9 74 16 175/64 (101) 97 Room Air 98.9 Intake and Output 11/27/18 06:59 Intake Total 1250 ml Output Total 100 ml Balance 1150 ml Intake Oral 250 ml IV Total 1000 ml Output Urine Total 100 ml # Voids 4 # Bowel Movements 1 PHYSICAL EXAM Alert. Oriented only to person. PERRL. EOMI. CN: no focal findings. Muscle tone: normal. Muscle strength: 4/5 DTR: 2+ Plantar reflex: flexor Gait: not examined in bed. Sensory exam: no abnormal findings. No cerebellar signs elicited. Review of Relevant I have reviewed the following items reyna (where applicable) has been applied. Labs Laboratory Tests Test 11/26/18 03:25 11/27/18 06:55 White Blood Count 4.7 x10^3/uL (4.0-11.0) 4.9 x10^3/uL (4.0-11.0) Red Blood Count 1.90 x10^6/uL (4.30-5.70) 2.85 x10^6/uL (4.30-5.70) Hemoglobin 6.6 g/dL (13.0-17.5) 9.3 g/dL (13.0-17.5) Hematocrit 19.3 % (39.0-53.0) 26.9 % (39.0-53.0) Mean Corpuscular Volume 102 fL (79-100) 94 fL (79-100) Mean Corpuscular Hemoglobin 35 pg (25-35) 33 pg (25-35) Mean Corpuscular Hemoglobin Concent 34 g/dL (31-37) 35 g/dL (31-37) Red Cell Distribution Width 15.1 % (11.5-14.5) 18.6 % (11.5-14.5) Platelet Count 296 x10^3/uL (140-400) 275 x10^3/uL (140-400) Neutrophils (%) (Auto) 69 % (31-73) Lymphocytes (%) (Auto) 22 % (24-48) Monocytes (%) (Auto) 8 % (0-9) Eosinophils (%) (Auto) 0 % (0-3) Basophils (%) (Auto) 0 % (0-3) Neutrophils # (Auto) 3.2 x10^3/uL (1.8-7.7) Lymphocytes # (Auto) 1.0 x10^3/uL (1.0-4.8) Monocytes # (Auto) 0.4 x10^3/uL (0.0-1.1) Eosinophils # (Auto) 0.0 x10^3/uL (0.0-0.7) Basophils # (Auto) 0.0 x10^3/uL (0.0-0.2) Sodium Level 141 mmol/L (136-145) Potassium Level 3.8 mmol/L (3.5-5.1) Chloride Level 107 mmol/L (98-107) Carbon Dioxide Level 28 mmol/L (21-32) Anion Gap 6 (6-14) Blood Urea Nitrogen 28 mg/dL (8-26) Creatinine 1.0 mg/dL (0.7-1.3) Estimated GFR (Cockcroft-Gault) 86.1 BUN/Creatinine Ratio 28 (6-20) Glucose Level 101 mg/dL (70-99) Calcium Level 11.3 mg/dL (8.5-10.1) Total Bilirubin 0.2 mg/dL (0.2-1.0) Aspartate Amino Transf (AST/SGOT) 16 U/L (15-37) Alanine Aminotransferase (ALT/SGPT) < 6 U/L (16-63) Alkaline Phosphatase 67 U/L (46-116) Ammonia 30 mcmol/L (11-34) Total Protein 9.0 g/dL (6.4-8.2) Albumin 1.4 g/dL (3.4-5.0) Albumin/Globulin Ratio 0.2 (1.0-1.7) Laboratory Tests Test 11/27/18 06:55 White Blood Count 4.9 x10^3/uL (4.0-11.0) Red Blood Count 2.85 x10^6/uL (4.30-5.70) Hemoglobin 9.3 g/dL (13.0-17.5) Hematocrit 26.9 % (39.0-53.0) Mean Corpuscular Volume 94 fL (79-100) Mean Corpuscular Hemoglobin 33 pg (25-35) Mean Corpuscular Hemoglobin Concent 35 g/dL (31-37) Red Cell Distribution Width 18.6 % (11.5-14.5) Platelet Count 275 x10^3/uL (140-400) Medications Current Medications Sodium Chloride 1,000 ml @ 100 mls/hr Q10H IV Last administered on 11/24/18at 11:21; Start 11/24/18 at 10:38; Stop 11/24/18 at 14:02; Status DC Amino Acids/ Glycerin/ Electrolytes 1,000 ml @ 75 mls/hr [id number] IV Last administered on 11/27/18at 08:09; Start 11/24/18 at 14:00 Thiamine HCl 100 mg DAILY IM Last administered on 11/26/18at 12:14; Start 11/24/18 at 15:00; Stop 11/26/18 at 09:01; Status DC Multivitamins (Thera M Plus) 1 tab DAILY PO Last administered on 11/27/18 08:09; Start 11/24/18 at 15:00 Zoledronic Acid 100 ml @ 400 mls/hr 1X ONCE IV Last administered on 11/25/18at 10:15; Start 11/25/18 at 10:00; Stop 11/25/18 at 10:14; Status DC Lactulose (Lactulose) 15 gm BID PO Last administered on 11/27/18at 08:09; Start 11/25/18 at 21:00 Vitals/I & O Vital Sign - Last 24 Hours 11/26/18 11/26/18 11/26/18 11/26/18 10:20 11:00 11:20 14:15 Temp 98.5 98.6 98.5 97.9 98.5 98.6 98.5 97.9 Pulse 76 74 74 74 Resp 18 18 18 18 B/P (MAP) 161/66 161/66 (97) 148/70 156/79 Pulse Ox 96 O2 Delivery Room Air 11/26/18 11/26/18 11/26/18 11/26/18 14:35 15:00 15:20 19:30 Temp 98.0 98.2 98.3 98.0 98.2 98.3 Pulse 82 83 77 Resp 18 16 20 B/P (MAP) 147/65 157/68 (97) 167/74 Pulse Ox 95 O2 Delivery Room Air Room Air 11/26/18 11/26/18 11/27/18 11/27/18 19:40 23:40 03:40 07:00 Temp 98.9 99.2 99.5 98.9 98.9 99.2 99.5 98.9 Pulse 78 81 84 74 Resp 18 18 18 16 B/P (MAP) 163/70 (101) 151/68 (95) 141/69 (93) 175/64 (101) Pulse Ox 95 97 94 97 O2 Delivery Room Air Room Air Room Air Room Air l Intake and Output 11/26/18 11/26/18 11/27/18 14:59 22:59 06:59 Intake Total 1000 ml 250 ml Output Total 100 ml Balance 1000 ml 150 ml LUCIANA CANTRELL MD Nov 27, 2018 10:19
[2018-11-27 11:00] VITALS: BP 121/57
--- NOTE | 2018-11-27 12:50 | PDOC3 ---
Discharge Summary Date of Admission: Nov 24, 2018 Date of Discharge: Nov 27, 2018 Follow-Up: 1-2 days Admitting Diagnosis comment: DISCHARGE DX : Mental status change, METABOLIC ENCEPHALOPATHY, ACUTE weight loss, mri head 11/24 chronic microvascular ischemic disease in a patient this age. mild supratentorial atrophy. abnormal decreased T1 signal of the marrow of the clivus, visualized cervical marrow, and also of the mandibular condyles greater on the left concerning for underlying marrow replacing process/marrow disorder. on ct chest Patchy opacity measuring 1.5 cm seen in the right upper lobe with pleural retraction. Consolidation is seen in the bilateral posterior lung bases. Otherwise, lungs are clear. 4.3 x 2.2 cm lesion is seen centered on the anterior right fifth rib with soft tissue component. Another lytic lesion is seen centered on the posterior eighth rib with rib destruction measuring approximately 3.6 x 1.8 cm. Numerous lucencies seen in the ribs, spine and sternum. 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 history of prostate cancer with no followup.,possible metastatic prostate cancer, elevated serum ammonia hypertension check a PSA and bone scan. Consult Oncology, consult Urology, consult Neurology consult Pulmonary Medicine IV procalamine, daily labs, PT/OT, Zometa lactulose 15cc po bid d/w and daughter. poor functional status.rec palliative care. PROCEED WITH HOSPICE INTAKE 32 min pt exam, chart review, > 50% of time spent with exam, chart review, pt care coordination Vitals Vitals Vital Signs Date Time Temp Pulse Resp B/P (MAP) Pulse Ox O2 Delivery O2 Flow Rate FiO2 11/27/18 03:40 99.5 84 18 141/69 (93) 94 Room Air 99.5 Physical Exam Physical Exam GENERAL: Cachectic. HEENT: Head is normocephalic, atraumatic, pupils were equally round and reactive to light and accommodation. NECK: Supple, no JVD, no thyromegaly was noted. LUNGS: Clear to auscultation in all lung haddad without rhonchi or wheezing. HEART: RRR, S1, S2 present. Peripheral pulses intact, no obvious murmurs were noted. ABDOMEN: Soft, nontender. Positive bowel sounds no organomegaly, normal bowel sounds. EXTREMITIES: Without any cyanosis, clubbing, or edema. Pedal pulses intact, Homans sign is negative. NEUROLOGIC: He will not talk to me. PSYCHIATRIC: Normal affect, normal mood. Stable. SKIN: No ulcerations or rashes, good skin turgor, no jaundice. VASCULAR: Good capillary refill, neurovascular bundle appears to be intact. General: Cooperative, No acute distress Lungs: Clear, Other (decrease bs) Abdomen: Soft Extremities: No cyanosis Skin: No rashes FINAL DIAGNOSIS Problems Medical Problems: (1) Altered mental status Status: Acute (2) Anemia Status: Acute (3) Hypercalcemia Status: Acute (4) Weakness Status: Acute Brief Hospital Course Mr. Perkins is a 83 old [sex] who presented with [ ] CONDITION AT DISCHARGE: Comment (GRAVE PROGNOSIS) Discharge Medications Current Medications Sodium Chloride 1,000 ml @ 100 mls/hr Q10H IV Last administered on 11/24/18at 11:21; Start 11/24/18 at 10:38; Stop 11/24/18 at 14:02; Status DC Amino Acids/ Glycerin/ Electrolytes 1,000 ml @ 75 mls/hr [id number] IV Last administered on 11/27/18at 08:09; Start 11/24/18 at 14:00 Thiamine HCl 100 mg DAILY IM Last administered on 11/26/18at 12:14; Start 11/24/18 at 15:00; Stop 11/26/18 at 09:01; Status DC Multivitamins (Thera M Plus) 1 tab DAILY PO Last administered on 11/27/18 08:09; Start 11/24/18 at 15:00 Zoledronic Acid 100 ml @ 400 mls/hr 1X ONCE IV Last administered on 11/25/18at 10:15; Start 11/25/18 at 10:00; Stop 11/25/18 at 10:14; Status DC Lactulose (Lactulose) 15 gm BID PO Last administered on 11/27/18at 08:09; Start 11/25/18 at 21:00 Vital Signs Vital Signs Date Time Temp Pulse Resp B/P (MAP) Pulse Ox O2 Delivery O2 Flow Rate FiO2 11/27/18 11:00 97.6 79 20 121/57 (78) 97 Room Air 97.6 Labs Laboratory Tests Test 11/26/18 03:25 11/27/18 06:55 White Blood Count 4.7 x10^3/uL (4.0-11.0) 4.9 x10^3/uL (4.0-11.0) Red Blood Count 1.90 x10^6/uL (4.30-5.70) 2.85 x10^6/uL (4.30-5.70) Hemoglobin 6.6 g/dL (13.0-17.5) 9.3 g/dL (13.0-17.5) Hematocrit 19.3 % (39.0-53.0) 26.9 % (39.0-53.0) Mean Corpuscular Volume 102 fL (79-100) 94 fL (79-100) Mean Corpuscular Hemoglobin 35 pg (25-35) 33 pg (25-35) Mean Corpuscular Hemoglobin Concent 34 g/dL (31-37) 35 g/dL (31-37) Red Cell Distribution Width 15.1 % (11.5-14.5) 18.6 % (11.5-14.5) Platelet Count 296 x10^3/uL (140-400) 275 x10^3/uL (140-400) Neutrophils (%) (Auto) 69 % (31-73) Lymphocytes (%) (Auto) 22 % (24-48) Monocytes (%) (Auto) 8 % (0-9) Eosinophils (%) (Auto) 0 % (0-3) Basophils (%) (Auto) 0 % (0-3) Neutrophils # (Auto) 3.2 x10^3/uL (1.8-7.7) Lymphocytes # (Auto) 1.0 x10^3/uL (1.0-4.8) Monocytes # (Auto) 0.4 x10^3/uL (0.0-1.1) Eosinophils # (Auto) 0.0 x10^3/uL (0.0-0.7) Basophils # (Auto) 0.0 x10^3/uL (0.0-0.2) Sodium Level 141 mmol/L (136-145) Potassium Level 3.8 mmol/L (3.5-5.1) Chloride Level 107 mmol/L (98-107) Carbon Dioxide Level 28 mmol/L (21-32) Anion Gap 6 (6-14) Blood Urea Nitrogen 28 mg/dL (8-26) Creatinine 1.0 mg/dL (0.7-1.3) Estimated GFR (Cockcroft-Gault) 86.1 BUN/Creatinine Ratio 28 (6-20) Glucose Level 101 mg/dL (70-99) Calcium Level 11.3 mg/dL (8.5-10.1) Total Bilirubin 0.2 mg/dL (0.2-1.0) Aspartate Amino Transf (AST/SGOT) 16 U/L (15-37) Alanine Aminotransferase (ALT/SGPT) < 6 U/L (16-63) Alkaline Phosphatase 67 U/L (46-116) Ammonia 30 mcmol/L (11-34) Total Protein 9.0 g/dL (6.4-8.2) Albumin 1.4 g/dL (3.4-5.0) Albumin/Globulin Ratio 0.2 (1.0-1.7) Laboratory Tests Test 11/27/18 06:55 White Blood Count 4.9 x10^3/uL (4.0-11.0) Red Blood Count 2.85 x10^6/uL (4.30-5.70) Hemoglobin 9.3 g/dL (13.0-17.5) Hematocrit 26.9 % (39.0-53.0) Mean Corpuscular Volume 94 fL (79-100) Mean Corpuscular Hemoglobin 33 pg (25-35) Mean Corpuscular Hemoglobin Concent 35 g/dL (31-37) Red Cell Distribution Width 18.6 % (11.5-14.5) Platelet Count 275 x10^3/uL (140-400) Allergies Allergies Coded Allergies Type Severity Reaction Last Updated Verified No Known Drug Allergies 09/25/13 No Disposition/Orders: D/C to Home w/ Hospice Patient Instructions D/C PLANNING 32 MIN PEGGY MELENDEZ MD Nov 27, 2018 12:50
[2018-11-27] MEDS ORDERED: LORA-434 PO (12:51)
--- NOTE | 2018-11-27 13:13 | SNU/HH DC ---
DISCHARGE ORDERS DISCHARGE INFORMATION: FINAL DIAGNOSIS Problems Medical Problems: (1) Altered mental status Status: Acute (2) Anemia Status: Acute (3) Hypercalcemia Status: Acute (4) Weakness Status: Acute CONDITION ON DISCHARGE: Guarded CODE STATUS: Code Status: DNR/DNI SHELTER: SNF STAY <30 DAYS: No HOSPICE: HOSPICE: Yes HOSPICE EVAL & TREAT: Yes LTAC: ADMIT TO LTAC: No POST DISCHARGE ORDERS: ACTIVITY ORDERS: Bedrest today DIET AFTER DISCHARGE: Regular CHECKS AFTER DISCHARGE: CHECKS AFTER DISCHARGE: Check blood press - daily TREATMENT/EQUIPMENT ORDERS: Speech Language Pathology For: Evaluation/Treatment DISCHARGE MEDICATIONS: Home Meds Active Scripts Lorazepam (ATIVAN) 1 Mg Tablet, 1 MG PO BID for ANXIETY for 10 Days, #20 TAB Prov:PEGGY MELENDEZ MD 11/27/18 PEGGY MELENDEZ MD Nov 27, 2018 13:13
--- NOTE | 2018-11-27 14:50 | NUR ---
DANNY following pt. Pt's family has met with a nurse form hospice. SW phoned and faxed orders to hospice. Spoke with Giselle equipment will be delivered between [phone] and a nurse will also meet pt at home at 1700. Spoke with pt's daughterStacy and family will transport pt home. DANNY discussed pt can leave by 1600 to make sure DME is delivered at home prior to his arriving. Packet on chart and D/w RN.
[2018-11-27 15:00] VITALS: BP 116/70
[2018-11-27 15:15] LABS: ALBUM 2.3 g/dL (2.9-4.4); ALPHA 1 0.3 g/dL (0.0-0.4); ALPHA 2 0.9 g/dL (0.4-1.0); BETA 0.9 g/dL (0.7-1.3); GAMMA 4.5 g/dL (0.4-1.8); IMMUNOGLOBULIN A 107 mg/dL (61-437); IMMUNOGLOBULIN G 5857 mg/dL (700-1600); IMMUNOGLOBULIN M 59 mg/dL (15-143); SPEP AG RATIO 0.3 (0.7-1.7)
--- NOTE | 2018-11-27 16:27 | NUR ---
Discharge Note: JORGITO JOHNSON [address] Discharge instructions and discharge home medications reviewed with family member and a copy given. All questions have been answered and understanding verbalized. The following instructions and handouts were given: Prescription for ativan prn for anxiety, agitation. Teaching about signs and symptoms of hypercalcemia, treatment. Patient information handout about multiple myeloma. Safety precautions to avoid fall, use of walker/wheelchair at home. Care plan discussed with hospice nurse. Discontinued lines and drains:peripheral IV intact, patient tolerated removal, no complications noted. Patient discharged to home with hospice services via wheelchair accompanied by family member at 1615.
[2018-11-30 15:15] LABS: ALBUMIN RAND UR 3.8 % (.); ALPHA 1 RAND UR 1.7 % (.); ALPHA 2 RAND UR 4.1 % (.); BETA RAND UR 8.1 % (.); GAMMA RAND UR 82.3 % (.); PROTEIN UR RAND 106.6 mg/dL (Not Estab.)
== END 2018-11-27 16:08 | disposition hospice, home (50) | DRG 840 ==
LOC: ER 10:15 → 6 SOUTH 12:10
PROVIDERS: ADMIT Internal Medicine; ATTEND Internal Medicine
PROC: 30233N1 Transfusion of Nonautologous Red Blood Cells into Peripheral Vein, Percutaneous Approach (ICD-10-PCS; principal; 2018-11-26)
DX: C90.00 Multiple myeloma not having achieved remission (principal); E43 Unspecified severe protein-calorie malnutrition; G93.41 Metabolic encephalopathy; Z68.1 Body mass index [BMI] 19.9 or less, adult; R64 Cachexia; E83.52 Hypercalcemia; H53.2 Diplopia; E77.8 Other disorders of glycoprotein metabolism; Z66 Do not resuscitate; Z51.5 Encounter for palliative care; I10 Essential (primary) hypertension; G47.00 Insomnia, unspecified; D63.0 Anemia in neoplastic disease; Z85.46 Personal history of malignant neoplasm of prostate; Z91.19 Patient's noncompliance with other medical treatment and regimen; Z83.3 Family history of diabetes mellitus; Z87.891 Personal history of nicotine dependence; Z90.79 Acquired absence of other genital organ(s)
CPT/HCPCS: 36415; 70450; 70551; 71045; 71250; 74176; 78306; 80053; 81001; 82140; 82607; 82784; 83520; 83690; 83735; 83880; 84100; 84165; 84166; 84439; 84443; 84484; 85025; 85027; 85610; 85651; 86334; 86850; 86900; 86901; 86920; 93005; A9503; G0103; J7030; P9016; 92610; 99285-25; G0378